=== PATIENT | male | born 1925 | race Two or more races ===

== ENCOUNTER 2016-10-12 00:26 | Inpatient (IN) | payer MEDICARE, MEDICAID ==
[~2016-10-12] VITALS: Ht 160 cm; Wt 61.2 kg
[~2016-10-12 00:26] MED LIST: ALBU8.5H2 IH; ALLO100T PO; ASPI81TA2 PO; ATOR40TA PO; CARV25TA PO; CILO50TA PO; FLUT16SP2 NS; FLUT1DIS5 IH; HYDR1TAB PO; LEVO100T13 PO; NIFE30TA26 PO; OMEG1CAP55 PO; ROPI1TAB2 PO; TAMS-12 PO
[2016-10-12] MEDS ORDERED: ASPIRIN 325 MG TABLET ONE (00:38)
[2016-10-12 00:54] LABS: BASOPHILS % (AUTO) 0.3 % (0.0-2.0); EOSINOPHILS # (AUTO) 0.1 /CMM (0.0-0.7); HEMATOCRIT 40 % (39-51); HEMOGLOBIN 13.2 g/dL (13.5-17.5); LYMPHOCYTES # (AUTO) 0.9 /CMM (0.8-4.8); LYMPHOCYTES % (AUTO) 10.2 % (20.0-44.0); MEAN CORPUSCULAR HEMOGLOBIN 29 PG (26.0-33.0); MEAN CORPUSCULAR HGB CONC 33 g/dl (31.0-36.0); MEAN CORPUSCULAR VOLUME 88 fL (80-96); MONOCYTES # (AUTO) 0.5 /CMM (0.1-1.30); MONOCYTES % (AUTO) 6.1 % (2.0-12.0); NEUTROPHILS # (AUTO) 7.3 /CMM (1.8-8.9); NEUTROPHILS % (AUTO) 82.4 % (43.0-81.0); PLATELET COUNT (AUTO) 304 /CMM (150-450); RDW COEFFICIENT OF VARIATION 13.9 (11.5-15.0); RED BLOOD CELL COUNT(AUTO) 4.57 MIL/uL (4.5-6.0); WHITE BLOOD COUNT (AUTO) 8.8 K/uL (4.3-11.0)
[2016-10-12] MEDS ORDERED: ASPIRIN 325 MG TABLET PO ONE (01:00)
[2016-10-12] MEDS ORDERED: NITROGLYCERIN 0.4 MG/TAB BOTTLE SL ONE (01:00)
[2016-10-12] MEDS ORDERED: NITROGLYCERIN 0.4 MG/TAB BOTTLE ONE (01:03)
[2016-10-12 01:05] LABS: CALCIUM, SERUM 8.7 mg/dL (8.5-10.1); CARBON DIOXIDE 33 mmol/L (21-32); CHLORIDE 97 mmol/L (98-107); GLUCOSE 129 mg/dL (74-106); POTASSIUM 4.7 mmol/L (3.5-5.1); SODIUM SERUM 140 mmol/L (136-145); UREA NITROGEN, BLOOD 39 mg/dL (7-18)
[2016-10-12 01:12] LABS: TROPONIN I < 0.017 ng/mL (0.00-0.056)
[2016-10-12] MEDS ORDERED: CLON0.2T PO (01:22)
[2016-10-12] MEDS ORDERED: ERGO400T7 PO (01:22)
[2016-10-12] MEDS ORDERED: ZOLP5TAB7 PO (01:22)
[2016-10-12] MEDS ORDERED: OLME1TAB PO (01:22)
[2016-10-12] MEDS ORDERED: SEVE800T8 PO (01:22)
[2016-10-12] MEDS ORDERED: INSU3INS6 SUBCUT (01:24)
[2016-10-12 01:41] LABS: INR 1.05 (0.87-1.13); PROTHROMBIN TIME 11.3 SECS (9.5-12.7)
[2016-10-12 01:49] LABS: B-TYPE NATRIURETIC PEPTIDE 48214 PG/ML (0-125)
[2016-10-12 02:05] VITALS: BP 164/67
[2016-10-12] MEDS ORDERED: DEXTROSE 50%-WATER 50 ML DISP.SYRIN IV PRN (03:30)
[2016-10-12] MEDS: BLOOD SUGAR DIAGNOSTIC 1 EACH STRIP IN SCH ×4 (07:30→22:12)
[2016-10-12 08:00] VITALS: BP 186/63
[2016-10-12 08:40] LABS: THYROID STIMULATING HORMONE 2.114 uIU/mL (0.358-3.74)
[2016-10-12] MEDS: ASPIRIN 81 MG TAB.CHEW PO SCH (09:00)
[2016-10-12] MEDS: NIFEdipine XL (30MG) 30 MG TAB PO SCH (09:23)
[2016-10-12 10:00] VITALS: BP 156/63
[2016-10-12] MEDS: CLONIDINE HCL 0.1 MG TABLET PO SCH ×2 (13:00→21:55)
[2016-10-12] MEDS: SEVELAMER CARBONATE 800 MG TABLET PO SCH ×2 (13:00→17:52)
[2016-10-12 16:00] VITALS: BP 132/60
[2016-10-12 19:15] LABS: GLUCOSE,BODY FLUID 78 mg/dL; PROTEIN, BODY FLUID 3.3 G/DL
[2016-10-12 19:22] LABS: WBC, BODY FLUID 2150 /cu. mm. (0-200)
[2016-10-12 19:25] LABS: TOTAL VOLUME,BODY FLUID 510 mL
[2016-10-12 19:52] LABS: MONOCYTES,BODY FLUID 5 %; POLYNUCLEAR, BODY FLUID 1 % (0-25)
[2016-10-12 20:00] VITALS: BP 124/63
[2016-10-12] MEDS ORDERED: MAG HYDROX/AL HYDROX/SIMETH 30 ML UDC PO PRN (21:30)
[2016-10-12 22:00] VITALS: BP 124/63
[2016-10-12] MEDS ORDERED: ZOLPIDEM TARTRATE 5 MG TABLET PO PRN (22:00)
[2016-10-12] MEDS ORDERED: ATORVASTATIN 10 MG TABLET PO SCH (22:00)
[2016-10-12] MEDS ORDERED: TAMSULOSIN 0.4 MG CAP.SR.24H PO SCH (22:00)
[2016-10-12] MEDS ORDERED: INSULIN DETEMIR 100 UNIT/ML CARTRIDGE SQ SCH (22:00)
[2016-10-13] VITALS: BP 120/64
[2016-10-13 04:00] VITALS: BP 147/56
[2016-10-13] MEDS: CLONIDINE HCL 0.1 MG TABLET PO SCH ×2 (06:12→12:03)
[2016-10-13] MEDS: BLOOD SUGAR DIAGNOSTIC 1 EACH STRIP IN SCH ×2 (06:12→12:11)
[2016-10-13 06:43] VITALS: BP 143/69
[2016-10-13 08:00] VITALS: BP 140/70
[2016-10-13] MEDS: SEVELAMER CARBONATE 800 MG TABLET PO SCH ×2 (08:39→12:02)
[2016-10-13] MEDS: NIFEdipine XL (30MG) 30 MG TAB PO SCH (08:39)
[2016-10-13] MEDS: ASPIRIN 81 MG TAB.CHEW PO SCH (08:39)
[2016-10-13] MEDS ORDERED: TRIBENZOR PO SCH (09:00)
[2016-10-13 12:03] VITALS: BP 147/62
[2016-10-16] MEDS ORDERED: ERGOCALCIFEROL (VITAMIN D 2) 50,000 UNIT CAPSULE PO SCH (09:00)
== END 2016-10-13 14:30 | disposition home or self-care (01) | DRG 291 ==
LOC: ER 00:28 → TELE 01:50 → MED 10-13 09:12
PROVIDERS: ADMIT Family Medicine; ATTEND Family Medicine
PROC: 0W993ZZ Drainage of Right Pleural Cavity, Percutaneous Approach (ICD-10-PCS; principal; 2016-10-12)
PROC: 5A1D00Z (ICD-10-PCS; 2016-10-13)
DX: I13.2 Hypertensive heart and chronic kidney disease with heart failure and with stage 5 chronic kidney disease, or end stage renal disease (principal); N18.6 End stage renal disease; I50.43 Acute on chronic combined systolic (congestive) and diastolic (congestive) heart failure; J90 Pleural effusion, not elsewhere classified; J98.11 Atelectasis; K90.9 Intestinal malabsorption, unspecified; J94.8 Other specified pleural conditions; M94.0 Chondrocostal junction syndrome [Tietze]; I25.119 Atherosclerotic heart disease of native coronary artery with unspecified angina pectoris; N40.0 Benign prostatic hyperplasia without lower urinary tract symptoms; Z95.1 Presence of aortocoronary bypass graft; I25.2 Old myocardial infarction; F41.0 Panic disorder [episodic paroxysmal anxiety]; Z99.2 Dependence on renal dialysis; D64.9 Anemia, unspecified; E11.22 Type 2 diabetes mellitus with diabetic chronic kidney disease; E78.5 Hyperlipidemia, unspecified; F03.90 Unspecified dementia, unspecified severity, without behavioral disturbance, psychotic disturbance, mood disturbance, and anxiety; H91.90 Unspecified hearing loss, unspecified ear; J44.9 Chronic obstructive pulmonary disease, unspecified; J45.909 Unspecified asthma, uncomplicated; K21.9 Gastro-esophageal reflux disease without esophagitis; M81.0 Age-related osteoporosis without current pathological fracture; I16.0 Hypertensive urgency; E83.42 Hypomagnesemia; G47.30 Sleep apnea, unspecified; H10.9 Unspecified conjunctivitis; Z86.73 Personal history of transient ischemic attack (TIA), and cerebral infarction without residual deficits; Z91.19 Patient's noncompliance with other medical treatment and regimen
CPT/HCPCS: 36415; 71010-TC; 72080-TC; 76942-TC; 80048-TC; 80061-TC; 82962-TC; 83880; 84439-TC; 84443-TC; 84484-TC; 85025-TC; 85730-TC; 87070-TC; 87075-TC; 87081-TC; 87102-TC; 89051-TC; 90935-TC; 93307-TC; 93970-TC; A4606; J1815; Z7610

== ENCOUNTER 2017-01-21 01:32 | Inpatient (IN) | payer MEDICARE, MEDICAID ==
[~2017-01-21] VITALS: Ht 160 cm; Wt 57.2 kg
[2017-01-21] VITALS (17 sets, daily range): BP systolic 95–152; BP diastolic 43–83
[~2017-01-21 01:32] MED LIST changes: -ALBU8.5H2 IH; -ALLO100T PO; -ATOR40TA PO; -CARV25TA PO; -CILO50TA PO; +CLON0.2T PO; +ERGO400T7 PO; -FLUT16SP2 NS; -FLUT1DIS5 IH; -HYDR1TAB PO; +INSU3INS6 SUBCUT; -LEVO100T13 PO; +OLME1TAB PO; -OMEG1CAP55 PO; -ROPI1TAB2 PO; +SEVE800T8 PO; +ZOLP5TAB7 PO
[2017-01-21] MEDS ORDERED: ASPIRIN 325 MG TABLET ONE (01:39)
--- NOTE | 2017-01-21 01:40 | NUR ---
TO BED 5 A 89 YO MALE BB FAMILY FOR CHEST PAIN/PRESSURE AND SOB. PATIENT IS AAOX3, WITH LABORED BREATHING, TACHYPNEIC AT 28, O2 SATURATION ON ROOM AIR IS 83%, SINUS TACHY ON THE MONITOR AT 110, KEPT HOBL ELEVATED. PROVIDED WITH O2 INH VIA O2 CANNULA AT 4LPM, SATTING NOW AT 92%. ENCOURAGED PROPER BREATHING TECHNIQUES. DR PATINO AT BEDSIDE FOR EVAL.
[2017-01-21] MEDS ORDERED: NITROGLYCERIN 0.4 MG/TAB BOTTLE ONE (01:44)
--- NOTE | 2017-01-21 01:45 | NUR ---
STARTED A SALINE LOCK ON THE RIGHT FOREARM G18.
[2017-01-21] MEDS ORDERED: ALBUTEROL FS 2.5 MG/0.5 ML VIAL.NEB ONE (01:47)
[2017-01-21] MEDS ORDERED: IPRATROPIUM NEB FS 0.5 MG/2.5 ML AMPUL.NEB ONE (01:47)
--- NOTE | 2017-01-21 01:53 | NUR ---
EKG DONE BY TECH.
[2017-01-21] MEDS ORDERED: IPRATROPIUM NEB FS 0.5 MG/2.5 ML AMPUL.NEB NEB ONE (02:00)
[2017-01-21] MEDS ORDERED: NITROGLYCERIN 0.4 MG/TAB BOTTLE SL ONE (02:00)
[2017-01-21] MEDS ORDERED: ASPIRIN 325 MG TABLET PO ONE (02:00)
[2017-01-21] MEDS ORDERED: ALBUTEROL FS 2.5 MG/0.5 ML VIAL.NEB NEB ONE (02:00)
[2017-01-21 02:03] LABS: BASOPHILS # (AUTO) 0.1 /CMM (0.0-0.2); BASOPHILS % (AUTO) 0.4 % (0.0-2.0); EOSINOPHILS # (AUTO) 0.2 /CMM (0.0-0.7); EOSINOPHILS % (AUTO) 1.1 % (0.0-6.0); HEMATOCRIT 37 % (39-51); HEMOGLOBIN 12.1 g/dL (13.5-17.5); LYMPHOCYTES # (AUTO) 2.8 /CMM (0.8-4.8); LYMPHOCYTES % (AUTO) 19.2 % (20.0-44.0); MEAN CORPUSCULAR HEMOGLOBIN 30 PG (26.0-33.0); MEAN CORPUSCULAR HGB CONC 33 g/dl (31.0-36.0); MEAN CORPUSCULAR VOLUME 91 fL (80-96); MONOCYTES # (AUTO) 0.7 /CMM (0.1-1.30); MONOCYTES % (AUTO) 4.6 % (2.0-12.0); NEUTROPHILS # (AUTO) 10.8 /CMM (1.8-8.9); NEUTROPHILS % (AUTO) 74.7 % (43.0-81.0); PLATELET COUNT (AUTO) 326 /CMM (150-450); RDW COEFFICIENT OF VARIATION 14.2 (11.5-15.0); RED BLOOD CELL COUNT(AUTO) 4.07 MIL/uL (4.5-6.0); WHITE BLOOD COUNT (AUTO) 14.5 K/uL (4.3-11.0)
[2017-01-21] MEDS ORDERED: ONDANSETRON HCL/PF 4 MG/2 ML VIAL ONE (02:09)
[2017-01-21] MEDS ORDERED: ALLO100T PO (02:10)
[2017-01-21] MEDS ORDERED: CARV6.252 PO (02:10)
[2017-01-21] MEDS ORDERED: ATOR40TA PO (02:10)
[2017-01-21] MEDS ORDERED: LOSA50TA21 PO (02:10)
[2017-01-21] MEDS ORDERED: NIFE60TA69 PO (02:10)
[2017-01-21] MEDS ORDERED: ISOS10TA2 PO (02:10)
[2017-01-21 02:17] LABS: CALCIUM, SERUM 7.9 mg/dL (8.5-10.1); CARBON DIOXIDE 21 mmol/L (21-32); CHLORIDE 102 mmol/L (98-107); GLUCOSE 148 mg/dL (74-106); POTASSIUM 5.4 mmol/L (3.5-5.1); SODIUM SERUM 140 mmol/L (136-145)
[2017-01-21 02:19] LABS: INR 1.08 (0.87-1.13); PROTHROMBIN TIME 11.6 SECS (9.5-12.7)
[2017-01-21 02:20] LABS: TROPONIN I 0.171 ng/mL (0.00-0.056)
--- NOTE | 2017-01-21 02:21 | NUR ---
DRYWALL TAPER HELPER AT BEDSIDE FOR CXR
[2017-01-21 02:22] LABS: CREATININE 8.4 mg/dL (0.6-1.3); UREA NITROGEN, BLOOD 83 mg/dL (7-18)
--- NOTE | 2017-01-21 02:26 | NUR ---
second ekg done, aflutter at 130's at this time. Dr Higgins notified with new orders.
[2017-01-21] MEDS ORDERED: DILTIAZEM HCL 25 MG IV ONE (02:27)
[2017-01-21] MEDS ORDERED: ONDANSETRON HCL/PF 4 MG/2 ML VIAL IV ONE (02:30)
[2017-01-21] MEDS ORDERED: DILTIAZEM HCL 50 MG IV IV ONE (02:30)
[2017-01-21 02:36] LABS: ALANINE AMINOTRANSFERASE 28 U/L (12-78); ALKALINE PHOSPHATASE 356 U/L (46-116); ASPARTATE AMINOTRANSFERASE 34 U/L (15-37); BILIRUBIN,DIRECT 0.1 mg/dL (0.0-0.2); BILIRUBIN,TOTAL 0.5 mg/dL (0.2-1.0); TOTAL PROTEIN, SERUM 8.3 g/dL (6.4-8.2)
--- NOTE | 2017-01-21 02:38 | NUR ---
MEDICATED PATIENT WITH CARDIZEM 10MG IVP ORDERED BY DR PATINO FOR UNCONTROLLED A FLUTTER AT 130'S, BP IS 120/68. ONGOING CARDIAC MONITORING.
--- NOTE | 2017-01-21 02:51 | NUR ---
DR. MACRINA WATKINS
--- NOTE | 2017-01-21 02:52 | NUR ---
THIRD EKG DONE AT THIS TIME, RECORDED SINUS RHYTHM AT 93BPM, DR PATINO NOTIFIED WITH STRIPS.
--- NOTE | 2017-01-21 02:53 | NUR ---
RECEIVED CELL NUMBER FROM DR. SCHRADER'S EXCHANGE AND WAS INSTRUCTED TO ATTEMPT TO CONTACT DR. SCHRADER DIRECTLY.
--- NOTE | 2017-01-21 02:56 | NUR ---
LEFT MESSAGE ON DR. SCHRADER'S PERSONAL CELL PHONE.
[2017-01-21 03:04] LABS: B-TYPE NATRIURETIC PEPTIDE 129296 PG/ML (0-125)
--- NOTE | 2017-01-21 03:09 | NUR ---
REPORT GIVEN TO NICOLE CHENEY FOR TELE ADMISSION.
--- NOTE | 2017-01-21 04:17 | NUR ---
NO RESPONSE FROM DR. SCHRADER AFTER SEVERAL MESSAGES LEFT ON HIS VOICE MAIL. PANEL PAGED PER DR. PATINO'S REQUEST
--- NOTE | 2017-01-21 04:35 | NUR ---
PATIENT IS SLEEPING COMFORTABLY AT THIS TIME. VSS.
--- NOTE | 2017-01-21 04:46 | NUR ---
DR PATINO ON THE PHONE WITH CIRO RODRIGUES.
--- NOTE | 2017-01-21 04:56 | NUR ---
TRANSPORTED TO TELE ROOM 321-1 VIA ALS PROTOCOL, NO INCIDENT NOTED. VSS.
--- NOTE | 2017-01-21 05:15 | NUR ---
ADMISSION NOTES Admitted pt from ER for SOB/CP. Denies pain/SOB @ this time. O2 4L N/C. Coarse rhonchi present. AAO x3. Greek-speaking. @ bedside. NSR 90's on tele. Spoke with Dr. Higgins. LEAD INGOT MOLDER Lorrie will enter admitting orders. Pt stable @ this time. NAD.
--- NOTE | 2017-01-21 06:41 | NUR ---
Pt remains stable. Resting in bed. F/U with Lorrie, HAT FORMING MACHINE FEEDER, re: admitting orders. Awaiting response.
[2017-01-21] MEDS ORDERED: MAGNESIUM HYDROXIDE 30 ML UDC PO PRN (07:00)
[2017-01-21] MEDS ORDERED: HYDROCODONE/APAP 5/325MG 1 EACH TABLET PO PRN (07:00)
[2017-01-21] MEDS ORDERED: ONDANSETRON HCL/PF 4 MG/2 ML VIAL IVP PRN (07:00)
[2017-01-21] MEDS ORDERED: Z GUARD REMEDY 2 OZ OINT TP PRN (07:00)
[2017-01-21] MEDS ORDERED: ACETAMINOPHEN 325 MG TABLET PO PRN (07:00)
[2017-01-21] MEDS ORDERED: MAG HYDROX/AL HYDROX/SIMETH 30 ML UDC PO PRN (07:00)
--- NOTE | 2017-01-21 07:35 | NUR ---
GOLF COURSE KEEPER OPENING NOTES RECEIVED PATIENT AWAKE IN BED, HEAD OF BED ELEVATED. ALERT AND ORIENTED X 3.PATIENT ON TELE MONITOR SINUS RHYTHM HEART RATE OF 82. PATIENT ON 4LPM VIA NC. PATIENT ABLE TO MAKE NEEDS KNOWN. CALL LIGHT WITHIN PATIENT'S REACH. WILL CONTINUE TO MONITOR ACCORDINGLY.
[2017-01-21] MEDS ORDERED: ISOSORBIDE DINITRATE (10MG) 10 MG TABLET PO SCH (09:00)
--- NOTE | 2017-01-21 09:10 | NUR ---
RN NOTES I WENT TO PATIENT'S ROOM AND HE TOLD ME THAT HE WAS HAVING SOB, NO CHEST PAIN. NON REBREATHING MASK 15LPM WAS APPLY DUE TO O2 SAT 74%. BP 137/59 HR 92 RR 20 T-97.7. O2 SAT IMPROVED AFTER NON-REBREATHING MASK APPLY. O2 SAT WENT FROM 74% 4LPM VIA NC TO 92% 15LPM PHIL NON-REBREATHING MASK.
--- NOTE | 2017-01-21 09:20 | NUR ---
AM BLOOD SUGAR CHECK DONE, NOTED WITH BS 172 MG/DL, PT HAD SOME JUICE AND BREAKFAST.
--- NOTE | 2017-01-21 09:22 | NUR ---
PT REFUSED INSULIN COVERAGE AT THIS TIME, RISKS AND BENEFITS OF REFUSAL DISCUSSED WITH PT.
[2017-01-21] MEDS ORDERED: NTG 50 MG/D5W250 ML BOTTL 250 ML IV PRN ×3 (09:30→11:30)
--- NOTE | 2017-01-21 09:40 | NUR ---
I CALLED DR. OLIVEROS TO INFORMED HIM THAT PATIENT WILL BE TRANSFER TO ICU.
[2017-01-21] MEDS: PANTOPRAZOLE 40 MG TABLET.DR PO SCH (09:42)
[2017-01-21] MEDS: ALLOPURINOL 100 MG TABLET PO SCH (09:42)
[2017-01-21] MEDS: CARVEDILOL 6.25 MG TABLET PO SCH ×2 (09:43→21:00)
[2017-01-21] MEDS: LOSARTAN POTASSIUM 50 MG TABLET PO SCH (09:43)
--- NOTE | 2017-01-21 09:43 | NUR ---
RN NOTES INFORMED DR. FRANCOIS ABOUT CRITICAL LAB. TROPONIN 3.088
[2017-01-21] MEDS: NIFEdipine XL 60 MG TAB PO SCH (09:44)
[2017-01-21] MEDS: ASPIRIN 81 MG TAB.CHEW PO SCH (09:44)
--- NOTE | 2017-01-21 09:50 | NUR ---
RN NOTES DR. OLIVEROS SAID TO HOLD AM MEDS.
[2017-01-21] MEDS ORDERED: AMIODARONE 150 MG in IV D5W 100 ML IV ONE (10:30)
--- NOTE | 2017-01-21 10:30 | NUR ---
PT FAMILY AT BEDSIDE, UPDATED WITH PT'S CONDITION AND TRANSFER TO ICU.
--- NOTE | 2017-01-21 10:50 | NUR ---
PT BELONGINGS TAKEN BY FAMILY ( AND DAUGHTER) AND CELL PHONE WELL
[2017-01-21] MEDS ORDERED: IV SET PRIMARY PUMP SET 1 EA INFUS.SET MC ONE ×3 (10:56→13:15)
[2017-01-21] MEDS ORDERED: ALBUTEROL FS 2.5 MG/0.5 ML VIAL.NEB NEB PRN (11:00)
[2017-01-21] MEDS ORDERED: IPRATROPIUM NEB FS 0.5 MG/2.5 ML AMPUL.NEB NEB PRN (11:00)
[2017-01-21] MEDS ORDERED: ERGOCALCIFEROL (VITAMIN D 2) 50,000 UNIT CAPSULE PO SCH (11:00)
--- NOTE | 2017-01-21 11:00 | NUR ---
PT TRANSFERRED OT ICU IN STABLE CONDITION, WITH ENGINE BUILDUP MECHANIC AND NRB MASK WITH O2 15 L/MIN, O2SAT 94% PLACED IN ROOM 262, REPORT GIVEN TO SYBIL CHENEY.
--- NOTE | 2017-01-21 11:00 | NUR ---
RN INITIAL NOTES PT RECEIVED FROM W VIA BED. REPORT RECEIVED FROM HOMAR CHENEY. PT AWAKE, A/OX3. GEORGIAN SPEAKING. ON NON-REBREATHER AT 15LPM. HOB ELEVATED. NO SIGNS OF PAIN NOTED. IV LINES IN PLACE. NOTED WILFREDO AV SHUNT, BRUIT AND THRILL PRESENT. PLACED COMFORTABLY INSIDE THE ROOM. ORIENTED TO ROOM AND USE OF CALL LIGHT, VANUSH RT DINING CHAIR SEAT CUSHION TRIMMER. SEEN AND EXAMINED BY DR. FRANCOIS AND DR. BOOTHE AT BEDSIDE. PT PLACED ON BIPAP, WILL MONITOR. WILL START AMIO BOLUS, HEPARIN DRIP AND HEMODIALYSIS. WILL CLOSELY MONITOR.
[2017-01-21] MEDS: HEPARIN INFUSION/D5W 500 ML IV PRN (11:22)
[2017-01-21] MEDS: BLOOD SUGAR DIAGNOSTIC 1 EACH STRIP IN SCH ×3 (11:39→22:07)
[2017-01-21] MEDS: INSULIN REGULAR, HUMAN 100 UNIT/ML 3 ML VIAL SQ PRN ×2 (11:41→17:33)
[2017-01-21] MEDS ORDERED: HEPARIN SODIUM, PORCINE 5000 UNITS/1 ML VIAL SQ ONE (12:00)
[2017-01-21] MEDS ORDERED: VANCOMYCIN 1 GM in IV D5W 250 ML IV ONE ×2 (12:00→16:00)
[2017-01-21] MEDS ORDERED: FEE PK DOSING 1 MIN EA MC ONE (12:05)
[2017-01-21] MEDS ORDERED: SECONDARY IV SET 1 EA INFUS.SET MC ONE ×2 (13:14→14:11)
--- NOTE | 2017-01-21 14:10 | NUR ---
RN NOTES DIALYSIS DONE. REMOVED 3500ML. NO RESPIRATORY DISTRESS NOTED. NO SOB NOTED. NO SIGNS OF PAIN NOTED. TOLERATED HD WELL. WILL CONTINUE TO MONITOR.
[2017-01-21] MEDS ORDERED: IV NS 0.9% 250 ML IV ONE (14:11)
[2017-01-21] MEDS: PIPERACILLIN /TAZOBACTAM 2.25 G in IV D5W 50 ML IV SCH ×2 (14:16→21:33)
[2017-01-21] MEDS: SEVELAMER CARBONATE 800 MG TABLET PO SCH ×2 (14:16→17:28)
[2017-01-21] MEDS: CLONIDINE HCL 0.1 MG TABLET PO SCH ×2 (14:30→17:29)
--- NOTE | 2017-01-21 15:00 | NUR ---
RN NOTES PT PLACED ON AT 3LPM VIA NC. HOB ELEVATED. ABG AT 1530. WILL CLOSELY MONITOR.
--- NOTE | 2017-01-21 15:02 | NUR ---
RN NOTES CRITICAL TROPONIN LEVEL- 10.[address] FRANCOIS. DIALYSIS DONE, REMOVED 3500ML. BIPAP REMOVED. PLACED ON 02 AT 3LPM VIA NC. HOB ELEVATED. NO RESPIRATORY DISTRESS NOTED. NO SOB NOTED. DENIES ANY PAIN. PT REMAINS A/OX3. PT IS ON HEPARIN DRIP. WILL GIVE COREG ORDERED. WILL CONTINUE TO MONITOR.
[2017-01-21] MEDS ORDERED: CARVEDILOL 6.25 MG TABLET PO SCH (15:30)
[2017-01-21] MEDS ORDERED: CARVEDILOL 6.25 MG TABLET PO ONE (15:30)
[2017-01-21 15:37] LABS: ABG BASE EXCESS 2.5 mmol/L; ABG OXYGEN SATURATION 89.5 % (92.0-98.5); ABG PCO2 35.3 mmHg (35.0-45.0); ABG PH 7.482 (7.350-7.450); ABG PO2 56.6 mmHg (75.0-100.0); AaDO2 130.3 mmHg; MetHb 0.7 % (0.0-1.5); SITE, ABG Right Radial; VENT MODE, BG N/C
[2017-01-21] MEDS: ATORVASTATIN 40 MG TABLET PO SCH (17:29)
--- NOTE | 2017-01-21 18:30 | NUR ---
RN CLOSING NOTES PT REMAINS A/OX3, NEPALESE SPEAKING. NO RESPIRATORY DISTRESS NOTED. NO SOB NOTED. DENIES ANY PAIN. HOB ELEVATED. ON 02 AT 6LPM VIA NC. IV LINES IN PLACE. ON HEPARIN DRIP, APTT LEVEL MONITORED. PT CLEAN AND DRY. ASSISTED ON REPOSITIONING. KEPT COMFORTABLE. CALL LIGHT WITHIN REACH. BLE ELEVATED. WILL ENDORSE FOR CONTINUITY OF CARE.
--- NOTE | 2017-01-21 19:20 | NUR ---
RN INITIAL NOTE; PT ON THE BED WITHOUT ANY DISTRESS. A/O X 4, ABLE TO FOLLOW COMMAND .WITH WILFREDO AV SHUNT THRILL AND BRUIT PRESENT . RFA 18G AND RH 20 G PERIPHERAL IV INTACT AND PATENT . PT ON HEPARIN DRIP. DENIED NAY PAIN AT THIS TIME .SAFETY MEASURES APPLIED CALL LIGHT WITHIN REACH . WILL CONTINUE TO MONITOR
--- NOTE | 2017-01-21 19:35 | NUR ---
RN NOTE; PTT RESULT > 170 , HELD HEPARIN DRIP FOR 60 MINS AT THIS TIME , WILL RESUME THE DOSE DECREASING BY 200 UNITS ORDERED .
--- NOTE | 2017-01-21 20:35 | NUR ---
RESUMED HEPARIN DRIP AT THE RATE OF 685 UNITS/HR . WILL CONTINUE TO MONITOR .
[2017-01-21] MEDS: TAMSULOSIN 0.4 MG CAP.SR.24H PO SCH (21:48)
[2017-01-21] MEDS: INSULIN DETEMIR 100 UNIT/ML CARTRIDGE SQ SCH (22:00)
--- NOTE | 2017-01-21 22:09 | NUR ---
RN NOTE; HELD LEVEMIR LEVEMIR 20 UNIT HELD AT THIS TIME DUE TO LOW BLOOD SUGAR 61 MG/DL . OFFERED ORANGE JUICE AND SNACK . PT IS A/O AND AWAKE ON BED . NO ANY HYPOGLYCEMIA SYMPTOMS AT THIS TIME . WILL CONTINUE TO MONITOR .
[2017-01-22] VITALS (27 sets, daily range): BP systolic 106–138; BP diastolic 42–66
--- NOTE | 2017-01-22 03:36 | NUR ---
PTT RESULT 57 . NO CHANGE IN HEPARIN DRIP RATE PER PROTOCOL . WILL CONTINUE TO MONITOR .
[2017-01-22] MEDS ORDERED: IV NS 0.9% 250 ML IV ONE (05:02)
[2017-01-22] MEDS: PIPERACILLIN /TAZOBACTAM 2.25 G in IV D5W 50 ML IV SCH ×3 (05:12→20:15)
[2017-01-22 05:23] LABS: BASOPHILS # (AUTO) 0.1 /CMM (0.0-0.2); BASOPHILS % (AUTO) 0.6 % (0.0-2.0); EOSINOPHILS # (AUTO) 0.1 /CMM (0.0-0.7); EOSINOPHILS % (AUTO) 0.8 % (0.0-6.0); HEMATOCRIT 30 % (39-51); LYMPHOCYTES % (AUTO) 9.1 % (20.0-44.0); MEAN CORPUSCULAR HEMOGLOBIN 31 PG (26.0-33.0); MEAN CORPUSCULAR HGB CONC 34 g/dl (31.0-36.0); MEAN CORPUSCULAR VOLUME 91 fL (80-96); MONOCYTES # (AUTO) 0.8 /CMM (0.1-1.30); MONOCYTES % (AUTO) 7.3 % (2.0-12.0); NEUTROPHILS # (AUTO) 8.7 /CMM (1.8-8.9); NEUTROPHILS % (AUTO) 82.2 % (43.0-81.0); PLATELET COUNT (AUTO) 280 /CMM (150-450); RDW COEFFICIENT OF VARIATION 14.2 (11.5-15.0); RED BLOOD CELL COUNT(AUTO) 3.27 MIL/uL (4.5-6.0); WHITE BLOOD COUNT (AUTO) 10.5 K/uL (4.3-11.0)
[2017-01-22 05:38] LABS: ALBUMIN 2.1 g/dL (3.4-5.0); BILIRUBIN,TOTAL 0.5 mg/dL (0.2-1.0); CALCIUM, SERUM 7.4 mg/dL (8.5-10.1); CREATININE 6.4 mg/dL (0.6-1.3); MAGNESIUM 2.2 mg/dL (1.8-2.4); POTASSIUM 5.7 mmol/L (3.5-5.1); TOTAL PROTEIN, SERUM 6.5 g/dL (6.4-8.2)
[2017-01-22 05:54] LABS: PHOSPHORUS 8.3 mg/dL (2.5-4.9)
[2017-01-22 05:56] LABS: TROPONIN I 8.614 ng/mL (0.00-0.056)
[2017-01-22] MEDS: BLOOD SUGAR DIAGNOSTIC 1 EACH STRIP IN SCH ×4 (06:35→21:31)
--- NOTE | 2017-01-22 07:14 | NUR ---
RN EOS NOTE; PT REMAINED STABLE DURING THE SHIFT, NO ANY DISTRESS NOTED. ON HEPARIN DRIP @ 685 UNIT/HR . SAFETY MEASURES APPLIED. BS AND V/S WNL . ENDORSED TO NEXT SHIFT RN FOR CONTINUITY OF CARE.
--- NOTE | 2017-01-22 08:00 | NUR ---
TACTICAL DEBRIEFER OFFICER NOTE: RECEIVED PATIENT ALERT AND ORIENTED 3, PERSIAN SPEAKING. SR ON TELE MONITOR WITH PAC'S HR 61. ON NC 3L, SPO2 WNL PATIENT NOTED TO BE ANURIC WITH INTACT SKIN, ABLE TO ASSIST WITH TURNING AND REPOSITIONING NOTED WITH [id number], RFA 18G AND WILFREDO AV SHUNT. NOTED ON HEPARIN DRIP AT 685U/HR WITH LAST PTT 57, NEXT PTT DUE 01/23 0400. PATIENT ON LOW AIR LOSS MATTRESS KEPT CLEAN AND DRY, ALL NEEDS MET. SAFETY MAINTAINED, CALL LIGHT PLACED WITHIN REACH. ONGOING MONITORING
--- NOTE | 2017-01-22 08:30 | NUR ---
BUTCHER HELPER NOTE: DR. OLIVEROS AT BEDSIDE MADE AWARE THAT PHOS IS 8.3 H. TROPONIN IS 8.614 TRENDING DOWN AND PROCALCITONIN IS 6.32H. AND K 5.7. DR. FRANCOIS SUGGESTS HD, DISCUSSED WITH DR. OLIVEROS THAT PATIENT IS ON HEPARIN DRIP, ON PHOSLO AND ANTIBIOTICS AND WILL DEFER HD ORDER TO DR HALL.
[2017-01-22] MEDS: ASPIRIN 81 MG TAB.CHEW PO SCH (08:33)
[2017-01-22] MEDS: CARVEDILOL 6.25 MG TABLET PO SCH ×2 (08:34→20:16)
[2017-01-22] MEDS: SEVELAMER CARBONATE 800 MG TABLET PO SCH (08:39)
[2017-01-22] MEDS: ALLOPURINOL 100 MG TABLET PO SCH (08:39)
[2017-01-22] MEDS: LOSARTAN POTASSIUM 50 MG TABLET PO SCH (08:40)
[2017-01-22] MEDS: CLONIDINE HCL 0.1 MG TABLET PO SCH ×5 (08:40→17:37)
[2017-01-22] MEDS: PANTOPRAZOLE 40 MG TABLET.DR PO SCH (08:40)
[2017-01-22] MEDS: NIFEdipine XL 60 MG TAB PO SCH (08:41)
[2017-01-22] MEDS ORDERED: ERGOCALCIFEROL (VITAMIN D 2) 50,000 UNIT CAPSULE PO SCH (09:00)
--- NOTE | 2017-01-22 12:15 | NUR ---
SOAKER HIDES NOTE: HD NURSE AT BEDSIDE, HD STARTED BP MAINTAINED, VS STABLE. NO DISTRESS NOTED. ONGOING MONITORING
--- NOTE | 2017-01-22 12:30 | NUR ---
TYPE MAPPER NOTE: PATIENT AT BEDSIDE STATES THAT PATIENT IS NOT LONGER ON RENVELA HOWEVER PHOSLO AT 667MG. CALL MADE TO DR. OLIVEROS AND ORDER CHANGED FROM RENVELA TO PHOSLO, ONGOING MONITORING.
[2017-01-22] MEDS: CALCIUM ACETATE 667 MG TABLET PO SCH ×2 (13:07→17:38)
--- NOTE | 2017-01-22 14:30 | NUR ---
MANAGER OF GLOBAL NOTE: HD COMPLETE, VS STABLE. BP MAINTAINED. PATIENT TOLERATED PROCEDURE WELL. 1800ML OUT. ONGOING CLOSE MONITORING
[2017-01-22] MEDS: ATORVASTATIN 40 MG TABLET PO SCH (17:38)
[2017-01-22] MEDS: VANCOMYCIN 500 MG in IV D5W 100 ML IV PRN (17:39)
[2017-01-22] MEDS: HEPARIN INFUSION/D5W 500 ML IV PRN (17:41)
--- NOTE | 2017-01-22 18:37 | NUR ---
HEAVY EQUIPMENT OPERATING ENGINEER NOTE: PATIENT RESTING COMFORTABLY IN BED WITH AT BEDSIDE. POST HD VANCO ADMINISTERED NOTED ON HEPARIN DRIP AT 685U/HR WITH LAST PTT 57, NEXT PTT DUE 01/23 0400. PATIENT KEPT CLEAN AND DRY, ALL NEEDS MET. SAFETY MAINTAINED, CALL LIGHT PLACED WITHIN REACH. ONGOING MONITORING
--- NOTE | 2017-01-22 20:00 | NUR ---
COLOR WORKER - NOTES - RECEIVED PATIENT ALERT AND ORIENTED 3, SENEGALESE/TURKISH SPEAKING. SR ON TELE MONITOR WITH PAC'S HR 61. ON NC 3L, SPO2 WNL PATIENT NOTED TO BE ANURIC WITH INTACT SKIN, ABLE TO ASSIST WITH TURNING AND REPOSITIONING NOTED WITH R HAND 20G, R FA 18G AND WILFREDO AV SHUNT. NOTED ON HEPARIN DRIP AT 685U/HR WITH LAST PTT 57, NEXT PTT DUE 01/23 0400. PATIENT ON LOW AIR LOSS MATTRESS KEPT CLEAN AND DRY, ALL NEEDS MET. SAFETY MAINTAINED, CALL LIGHT PLACED WITHIN REACH. ONGOING MONITORING
[2017-01-22] MEDS: TAMSULOSIN 0.4 MG CAP.SR.24H PO SCH (21:32)
[2017-01-22] MEDS: INSULIN DETEMIR 100 UNIT/ML CARTRIDGE SQ SCH (21:32)
[2017-01-23] VITALS (24 sets, daily range): BP systolic 105–133; BP diastolic 34–59
[2017-01-23 05:11] LABS: BASOPHILS % (AUTO) 0.5 % (0.0-2.0); EOSINOPHILS # (AUTO) 0.1 /CMM (0.0-0.7); HEMATOCRIT 32 % (39-51); HEMOGLOBIN 10.5 g/dL (13.5-17.5); LYMPHOCYTES # (AUTO) 1.1 /CMM (0.8-4.8); MEAN CORPUSCULAR HEMOGLOBIN 30 PG (26.0-33.0); MEAN CORPUSCULAR HGB CONC 33 g/dl (31.0-36.0); MEAN CORPUSCULAR VOLUME 92 fL (80-96); MONOCYTES # (AUTO) 0.8 /CMM (0.1-1.30); MONOCYTES % (AUTO) 9.7 % (2.0-12.0); NEUTROPHILS # (AUTO) 6.3 /CMM (1.8-8.9); NEUTROPHILS % (AUTO) 75.8 % (43.0-81.0); PLATELET COUNT (AUTO) 253 /CMM (150-450); RDW COEFFICIENT OF VARIATION 14.1 (11.5-15.0); RED BLOOD CELL COUNT(AUTO) 3.44 MIL/uL (4.5-6.0); WHITE BLOOD COUNT (AUTO) 8.3 K/uL (4.3-11.0)
[2017-01-23] MEDS ORDERED: IV NS 0.9% 250 ML IV ONE (05:21)
[2017-01-23] MEDS: PIPERACILLIN /TAZOBACTAM 2.25 G in IV D5W 50 ML IV SCH ×3 (05:23→20:37)
[2017-01-23 05:28] LABS: CALCIUM, SERUM 7.6 mg/dL (8.5-10.1); CREATININE 5.8 mg/dL (0.6-1.3); PHOSPHORUS 6.1 mg/dL (2.5-4.9); POTASSIUM 5.3 mmol/L (3.5-5.1)
[2017-01-23 05:39] LABS: TROPONIN I 5.159 ng/mL (0.00-0.056)
--- NOTE | 2017-01-23 06:15 | NUR ---
PTT 89, HEPARIN DRIP HELD FOR 30 MINUTES AND RESTARTED AT 100 UNITS/HR LESS 585 UNITS/HR PER PROTOCOL AND TROPONIN WAS 5.129 TRENDING DOWN FROM 8.6
[2017-01-23] MEDS: BLOOD SUGAR DIAGNOSTIC 1 EACH STRIP IN SCH ×4 (07:52→21:58)
[2017-01-23] MEDS: CALCIUM ACETATE 667 MG TABLET PO SCH ×3 (07:52→17:16)
[2017-01-23] MEDS: PANTOPRAZOLE 40 MG TABLET.DR PO SCH (07:52)
[2017-01-23] MEDS: ASPIRIN 81 MG TAB.CHEW PO SCH (08:01)
[2017-01-23] MEDS: CARVEDILOL 6.25 MG TABLET PO SCH ×2 (08:02→20:38)
[2017-01-23] MEDS: CLONIDINE HCL 0.1 MG TABLET PO SCH ×3 (08:02→17:16)
[2017-01-23] MEDS: LOSARTAN POTASSIUM 50 MG TABLET PO SCH (08:02)
[2017-01-23] MEDS: ALLOPURINOL 100 MG TABLET PO SCH (08:02)
[2017-01-23] MEDS ORDERED: HEPARIN SODIUM, PORCINE 5000 UNITS/1 ML VIAL SQ SCH (09:00)
[2017-01-23] MEDS: NIFEdipine XL (30MG) 30 MG TAB PO SCH (10:07)
--- NOTE | 2017-01-23 11:09 | NUR ---
CARPET INSTALLER NOTE 0720: Received patient awake, A/Ox3, Indonesian/Cook Islander speaking, understands little Amharic. With 3LPM O2 via NC tolerated well. No c/o any discomfort at this time. WILFREDO AV fistula + bruit/thrill. NSR 60 on the monitor. On Heparin drip infusing as ordered. Noted with crackles during auscultation. 0830: S/E by Dr. lopez, with order to DC Heparin, Trop trended down, changed to SQ. 0900: S/E by Dr. Cartagena, awaiting Nephro for HD. 1045: S/E by Dr. Askew, no new order at this time. 1100: No any significant changes noted at this time. SB 50's. Patient has no c/o dizziness, headache, etc.
[2017-01-23] MEDS: DEXTROSE 50%-WATER 50 ML DISP.SYRIN IV PRN (12:06)
[2017-01-23] MEDS: HEPARIN SODIUM, PORCINE 5000 UNITS/1 ML VIAL SQ SCH ×2 (12:13→20:38)
--- NOTE | 2017-01-23 12:47 | NUR ---
GEOSPATIAL PROGRAM MANAGEMENT OFFICER NOTE 1200: Noted patient with BS 48, patient is asymptomatic, no diaphoresis, lightheadedness, shaking etc. A/Ox3, and refused D50W, said he will eat lunch and check again after 30min. OJ given. 1230: BS rechecked 94.
[2017-01-23] MEDS: ATORVASTATIN 40 MG TABLET PO SCH (17:16)
[2017-01-23] MEDS: TAMSULOSIN 0.4 MG CAP.SR.24H PO SCH (21:58)
[2017-01-23] MEDS: INSULIN DETEMIR 100 UNIT/ML CARTRIDGE SQ SCH (21:59)
[2017-01-24] VITALS (18 sets, daily range): BP systolic 96–126; BP diastolic 36–56
[2017-01-24 04:52] LABS: BASOPHILS % (AUTO) 0.5 % (0.0-2.0); EOSINOPHILS # (AUTO) 0.1 /CMM (0.0-0.7); EOSINOPHILS % (AUTO) 1.7 % (0.0-6.0); HEMATOCRIT 30 % (39-51); LYMPHOCYTES # (AUTO) 1.2 /CMM (0.8-4.8); MEAN CORPUSCULAR HEMOGLOBIN 30 PG (26.0-33.0); MEAN CORPUSCULAR HGB CONC 33 g/dl (31.0-36.0); MEAN CORPUSCULAR VOLUME 91 fL (80-96); MONOCYTES # (AUTO) 0.7 /CMM (0.1-1.30); MONOCYTES % (AUTO) 9.6 % (2.0-12.0); NEUTROPHILS # (AUTO) 5.3 /CMM (1.8-8.9); NEUTROPHILS % (AUTO) 72.2 % (43.0-81.0); PLATELET COUNT (AUTO) 236 /CMM (150-450); RED BLOOD CELL COUNT(AUTO) 3.31 MIL/uL (4.5-6.0); WHITE BLOOD COUNT (AUTO) 7.3 K/uL (4.3-11.0)
[2017-01-24 04:59] LABS: ALBUMIN 2.1 g/dL (3.4-5.0); BILIRUBIN,TOTAL 0.4 mg/dL (0.2-1.0); CALCIUM, SERUM 7.7 mg/dL (8.5-10.1); MAGNESIUM 2.1 mg/dL (1.8-2.4); PHOSPHORUS 4.7 mg/dL (2.5-4.9); POTASSIUM 4.7 mmol/L (3.5-5.1); TOTAL PROTEIN, SERUM 6.5 g/dL (6.4-8.2)
[2017-01-24 05:07] LABS: TROPONIN I 3.356 ng/mL (0.00-0.056)
[2017-01-24] MEDS: PIPERACILLIN /TAZOBACTAM 2.25 G in IV D5W 50 ML IV SCH ×3 (05:37→21:06)
[2017-01-24] MEDS: DEXTROSE 50%-WATER 50 ML DISP.SYRIN IV PRN (05:43)
--- NOTE | 2017-01-24 07:40 | NUR ---
TECHNICIAN TELECOMMUNICATION SYSTEMS NOTE PATIENT IN BED , ALL NEEDS ATTENDED ON TELE MONITOR SB HR 55 , ON 2L NC O2 .AT 99% ,PATIENT ALERT, ORIENTEDX3 , , RT HAND AND RT FA HL INTACT ,NO S\S INFECTION NOTED , WILFREDO AV FISTULA IN PLACE WITH BRUIT SOUND NOTED , BED IN ,LOWEST AND LOCKED POSITION , CALL LIGHT WITHIN REACH , PLAN OF CARE DISCUSSED WITH PATIENT, WILL CONT TO MONITOR CLOSELY , SEEN BY DR FRANCOIS NOTIFIED THAT TROPONIN 3.356 AND BLOOD SUGAR WAS 42 MG\DL
[2017-01-24] MEDS: PANTOPRAZOLE 40 MG TABLET.DR PO SCH (08:05)
[2017-01-24] MEDS: CALCIUM ACETATE 667 MG TABLET PO SCH ×3 (08:05→17:06)
[2017-01-24] MEDS: ALLOPURINOL 100 MG TABLET PO SCH (08:05)
[2017-01-24] MEDS: ASPIRIN 81 MG TAB.CHEW PO SCH (08:05)
[2017-01-24] MEDS: HEPARIN SODIUM, PORCINE 5000 UNITS/1 ML VIAL SQ SCH ×2 (08:06→21:08)
[2017-01-24] MEDS: BLOOD SUGAR DIAGNOSTIC 1 EACH STRIP IN SCH ×4 (08:15→21:04)
[2017-01-24] MEDS: CLONIDINE HCL 0.1 MG TABLET PO SCH ×3 (08:59→17:06)
[2017-01-24] MEDS: CARVEDILOL 6.25 MG TABLET PO SCH ×2 (09:00→21:00)
[2017-01-24] MEDS: NIFEdipine XL (30MG) 30 MG TAB PO SCH (09:00)
--- NOTE | 2017-01-24 09:00 | NUR ---
METAL PRECISION MACHINE ASSEMBLER NOTE SEEN BY DR LANCASTER AWARE THAT PATIENT FEELS BETTER ,ON 2L NC NO SOB
[2017-01-24] MEDS: LOSARTAN POTASSIUM 50 MG TABLET PO SCH (09:16)
--- NOTE | 2017-01-24 11:35 | NUR ---
LPN PRIVATE DUTY NOTE SEEN BY DR KONG WITH ORDER TO TRANSFER TO TELE , ORDER CARRIED OUT
[2017-01-24] MEDS: INSULIN REGULAR, HUMAN 100 UNIT/ML 3 ML VIAL SQ PRN (12:22)
--- NOTE | 2017-01-24 12:31 | NUR ---
MIGUELANGEL received a call from pt's SHRAVAN Day requesting a verification of admission letter for pt. since pt. is scheduled to travel and is unable to do so due to hospitalization. MIGUELANGEL completed verification of admission letter and gave it to SHRAVAN Day to give to pt. since pt. is Ecuadorean speaking only.
--- NOTE | 2017-01-24 14:39 | NUR ---
MIGUELANGEL received a call from pt's travel accommodation inspector Tess requesting to email her the verification of admission letter. MIGUELANGEL sent the letter via email to [email or web address]
--- NOTE | 2017-01-24 16:15 | NUR ---
agriculture professor note transferred to tele unit by bed with acls protocol by bed with stable condition .placed to room 114 bed 1
--- NOTE | 2017-01-24 16:56 | NUR ---
MAINTENANCE TRUCK DRIVER NOTE RECEIVED PATIENT FROM ICU , ALERT , ORIENTED X3 , PLACED ON TELE MONITOR SR 60 , ON 2L O2 VIA NC NO SOB NOTED ,FAMILY AT BEDSIDE, ALL NEEDS ATTENDED , CALL LIGHT WITHIN REACH UNIT ORIENTATION DONE
[2017-01-24] MEDS: ATORVASTATIN 40 MG TABLET PO SCH (17:06)
--- NOTE | 2017-01-24 17:52 | NUR ---
MICA MACHINE OPERATOR NOTE ASSISTED TO BR , ABLE TO MAKE BM ,KEEP CLEAN DRY, WILL CONT TO MONITOR CLOSELY
--- NOTE | 2017-01-24 18:13 | NUR ---
EVALUATION ANALYST NOTE HAVING DINNER , ABLE TO EAT SELF, NOT IN CUTE DISTRESS
--- NOTE | 2017-01-24 19:51 | NUR ---
TELE-1/MATERIAL CUTTER PT TRANSFERRED TO ROOM 118-2 FOR STAFFING PURPOSES. PT TOLERATED WELL. HERMES ZAVALA AT BEDSIDE FOR PT SAFETY.
[2017-01-24] MEDS: INSULIN DETEMIR 100 UNIT/ML CARTRIDGE SQ SCH (21:06)
[2017-01-24] MEDS: TAMSULOSIN 0.4 MG CAP.SR.24H PO SCH (21:07)
--- NOTE | 2017-01-24 21:12 | NUR ---
MED NOTE: PT REFUSING REG INSULIN COVERAGE ONLY WANTING LEVEMIR COVERAGE. RISKS AND BENIFITS EXPLAINED. WILL CONTINUE TO MONITOR.
[2017-01-25] VITALS: BP 125/56
[2017-01-25 04:00] VITALS: BP_SYST 118; BP_DIAS 55; BP_DIAS 61
[2017-01-25] MEDS: PIPERACILLIN /TAZOBACTAM 2.25 G in IV D5W 50 ML IV SCH ×3 (05:00→21:49)
--- NOTE | 2017-01-25 05:49 | NUR ---
MED NOTE: 0500 ZOSYN ADMINISTERED ON DOWN TIME EMAR.
[2017-01-25 07:11] LABS: BASOPHILS % (AUTO) 0.4 % (0.0-2.0); EOSINOPHILS # (AUTO) 0.2 /CMM (0.0-0.7); EOSINOPHILS % (AUTO) 2.6 % (0.0-6.0); HEMATOCRIT 29 % (39-51); HEMOGLOBIN 9.8 g/dL (13.5-17.5); LYMPHOCYTES # (AUTO) 1.2 /CMM (0.8-4.8); LYMPHOCYTES % (AUTO) 16.9 % (20.0-44.0); MEAN CORPUSCULAR HEMOGLOBIN 31 PG (26.0-33.0); MEAN CORPUSCULAR HGB CONC 34 g/dl (31.0-36.0); MEAN CORPUSCULAR VOLUME 91 fL (80-96); MONOCYTES # (AUTO) 0.6 /CMM (0.1-1.30); NEUTROPHILS # (AUTO) 5.1 /CMM (1.8-8.9); NEUTROPHILS % (AUTO) 72.1 % (43.0-81.0); PLATELET COUNT (AUTO) 221 /CMM (150-450); RDW COEFFICIENT OF VARIATION 13.6 (11.5-15.0); RED BLOOD CELL COUNT(AUTO) 3.21 MIL/uL (4.5-6.0); WHITE BLOOD COUNT (AUTO) 7.1 K/uL (4.3-11.0)
--- NOTE | 2017-01-25 07:30 | NUR ---
RN INITIAL NOTE RECEIVED REPORT FROM DAHLIA WATTS PM NURSE. PT A/O X3 NC@ 2L. IV RFA #20 WILFREDO AV SHUNT.WILL CONTINUE TO MONITOR. ALL SAFETY MEASURES IN PLACE.
[2017-01-25 07:33] LABS: CALCIUM, SERUM 7.7 mg/dL (8.5-10.1); CARBON DIOXIDE 28 mmol/L (21-32); CHLORIDE 103 mmol/L (98-107); CREATININE 6.2 mg/dL (0.6-1.3); GLUCOSE 100 mg/dL (74-106); MAGNESIUM 2.2 mg/dL (1.8-2.4); PHOSPHORUS 5.2 mg/dL (2.5-4.9); POTASSIUM 5.7 mmol/L (3.5-5.1); SODIUM SERUM 140 mmol/L (136-145); UREA NITROGEN, BLOOD 57 mg/dL (7-18); VANCOMYCIN,TROUGH 15 ug/ml (12-20)
[2017-01-25 08:00] VITALS: BP 119/50
[2017-01-25] MEDS: BLOOD SUGAR DIAGNOSTIC 1 EACH STRIP IN SCH ×4 (08:28→21:50)
[2017-01-25] MEDS: PANTOPRAZOLE 40 MG TABLET.DR PO SCH (08:29)
[2017-01-25] MEDS: ASPIRIN 81 MG TAB.CHEW PO SCH (08:29)
[2017-01-25] MEDS: ALLOPURINOL 100 MG TABLET PO SCH (08:29)
[2017-01-25] MEDS: CALCIUM ACETATE 667 MG TABLET PO SCH ×3 (08:29→17:33)
[2017-01-25] MEDS: CLONIDINE HCL 0.1 MG TABLET PO SCH ×3 (08:38→17:32)
[2017-01-25] MEDS: CARVEDILOL 6.25 MG TABLET PO SCH ×2 (08:38→21:50)
--- NOTE | 2017-01-25 08:38 | NUR ---
RN NOTE PT NOTICE TO HAVE ASPIRIN BOTTLE FROM HOME 81 MG. FOR PT SAFETY BOTTLE TAKE AND SENT TO PHARMACY. COPY OF BAG PUT IN CHART. CHARGE NURSE RUTHIE NOTIFIED.
[2017-01-25] MEDS: HEPARIN SODIUM, PORCINE 5000 UNITS/1 ML VIAL SQ SCH ×2 (08:39→21:56)
[2017-01-25] MEDS: LOSARTAN POTASSIUM 50 MG TABLET PO SCH (08:39)
[2017-01-25] MEDS: NIFEdipine XL (30MG) 30 MG TAB PO SCH (08:39)
--- NOTE | 2017-01-25 08:43 | NUR ---
RN NOTE PER HD NURSE DUSTIN WILL HOLD ALL BP MEDICATIONS WELL ASPIRIN AND HEPARIN DUE TO HAVING TO STICK PT FOR HD.
[2017-01-25] MEDS: DEXTROSE 50%-WATER 50 ML DISP.SYRIN IV PRN (11:52)
[2017-01-25 12:00] VITALS: BP_SYST 136; BP_SYST 137; BP_DIAS 52; BP_DIAS 57
[2017-01-25] MEDS ORDERED: EPOETIN ALFA (10,000 UNIT) 10,000 UNIT/ML VIAL SQ ONE (13:00)
--- NOTE | 2017-01-25 13:00 | NUR ---
RN NOTE PT B.S WAS 52 DEXTROSE GIVEN IV. RUI 30 MINUTES B.S 175. PT STABLE .
[2017-01-25] MEDS ORDERED: IV NS 0.9% 250 ML IV ONE (14:52)
[2017-01-25] MEDS ORDERED: IV SET PRIMARY PUMP SET 1 EA INFUS.SET MC ONE (14:52)
[2017-01-25] MEDS ORDERED: SECONDARY IV SET 1 EA INFUS.SET MC ONE (14:53)
[2017-01-25] MEDS: VANCOMYCIN 500 MG in IV D5W 100 ML IV PRN (15:14)
[2017-01-25 16:00] VITALS: BP_SYST 137; BP_DIAS 62; BP_DIAS 68
[2017-01-25] MEDS: ATORVASTATIN 40 MG TABLET PO SCH (17:32)
[2017-01-25] MEDS: INSULIN REGULAR, HUMAN 100 UNIT/ML 3 ML VIAL SQ PRN (17:36)
--- NOTE | 2017-01-25 19:20 | NUR ---
RN OPENING NOTES: RECEIVED PT ON BED AWAKE ALOX3 AND VERBALLY RESPONSIVE SYRIAC/ FIJIAN SPEAKER. ON O2 THERAPY, TOLERATED WELL AT 2LPM. SR WITH 1ST DEGREE AVB NOTED ON MONITOR HR AT 61 BPM. IV ACCESS ON R HAND G22 PATENT AND INTACT L AV SHUNT WITH BRUITS AND THRILLS. SAFETY MEASURES ENSURED. CALL LIGHT WITHIN REACH. CONTINUOUSLY MONITORED.
--- NOTE | 2017-01-25 19:24 | NUR ---
RN CLOSING REPORT GIVEN TO JAYNA RN PM NURSE FOR TRACEY. PT A/O X3 NC@ 2L. IV R HAND #22 PATENT AND INTACT, WILFREDO AV SHUNT. ALL SAFETY MEASURES IN PLACE. ALL MEDICATIONS GIVEN ALL ORDERS CARRIED OUT.
[2017-01-25 20:00] VITALS: BP 160/62
--- NOTE | 2017-01-25 21:30 | NUR ---
RN NOTES: NOTED BLOOD GLUCOSE AT 77. HELD LEVEMIR DOSE AT THIS TIME AND OFFERED SNACKS. CONTINUOUSLY MONITORED FOR S/SX OF HYPOGLYCEMIA.
[2017-01-25] MEDS: TAMSULOSIN 0.4 MG CAP.SR.24H PO SCH (21:50)
[2017-01-25] MEDS: INSULIN DETEMIR 100 UNIT/ML CARTRIDGE SQ SCH (21:57)
[2017-01-26] VITALS: BP 147/63
[2017-01-26 04:00] VITALS: BP 144/57
[2017-01-26] MEDS ORDERED: IV NS 0.9% 250 ML IV ONE (05:04)
[2017-01-26] MEDS: PIPERACILLIN /TAZOBACTAM 2.25 G in IV D5W 50 ML IV SCH ×2 (05:56→12:03)
[2017-01-26] MEDS: BLOOD SUGAR DIAGNOSTIC 1 EACH STRIP IN SCH ×2 (06:32→12:03)
[2017-01-26 06:49] LABS: CALCIUM, SERUM 7.9 mg/dL (8.5-10.1); CARBON DIOXIDE 31 mmol/L (21-32); CHLORIDE 98 mmol/L (98-107); CREATININE 5.8 mg/dL (0.6-1.3); GLUCOSE 148 mg/dL (74-106); POTASSIUM 5.5 mmol/L (3.5-5.1); SODIUM SERUM 137 mmol/L (136-145); UREA NITROGEN, BLOOD 54 mg/dL (7-18)
--- NOTE | 2017-01-26 07:21 | NUR ---
RN CLOSING NOTES; PATIENT REMAINED IN BED NOT IN APPARENT DISTRESS. NO COMPLAINTS OF PAIN. REMAINED SR ON MONITOR WITH 1 DEGREE AVB STILL. WITH EPISODES OF BRADYCARDIA. SAFETY MEASURES ENSURED. NO COMPLAINTS OF PAIN. ENDORSED TO AM SHIFT RN
--- NOTE | 2017-01-26 07:26 | NUR ---
RN INITIAL NOTE RECEIVED REPORT FROM JAYNA RN PM NURSE. PT A/O X3 . NC@ 2L. IV R HAND#22 WILFREDO AV SHUNT.WILL CONTINUE TO MONITOR. ALL SAFETY MEASURES IN PLACE.
[2017-01-26 08:00] VITALS: BP 142/54
[2017-01-26] MEDS: ALLOPURINOL 100 MG TABLET PO SCH (08:12)
[2017-01-26] MEDS: ASPIRIN 81 MG TAB.CHEW PO SCH (08:12)
[2017-01-26] MEDS: PANTOPRAZOLE 40 MG TABLET.DR PO SCH (08:12)
[2017-01-26] MEDS: CALCIUM ACETATE 667 MG TABLET PO SCH ×2 (08:12→12:03)
[2017-01-26] MEDS: CARVEDILOL 6.25 MG TABLET PO SCH (08:13)
[2017-01-26] MEDS: NIFEdipine XL (30MG) 30 MG TAB PO SCH (08:14)
[2017-01-26] MEDS: LOSARTAN POTASSIUM 50 MG TABLET PO SCH (08:15)
[2017-01-26] MEDS: HEPARIN SODIUM, PORCINE 5000 UNITS/1 ML VIAL SQ SCH (08:17)
[2017-01-26] MEDS: CLONIDINE HCL 0.1 MG TABLET PO SCH ×2 (08:18→12:04)
[2017-01-26] MEDS ORDERED: LEVO750T21 PO ×2 (10:48→10:55)
[2017-01-26] MEDS ORDERED: ALBUT2 CONTNEB (11:17)
--- NOTE | 2017-01-26 11:21 | NUR ---
RN NOTE B.S TAKEN 142 PT REFUSING COVERAGE OF INSULIN.
[2017-01-26 12:00] VITALS: BP_SYST 118; BP_SYST 142; BP_DIAS 54
[2017-01-26 12:04] VITALS: BP 147/68
--- NOTE | 2017-01-26 15:40 | NUR ---
DISCHARGE NOTE PT DC HOME WITH AND NEIGHBOR. BELONGING LIST SIGNED ALL INSTRUCTIONS GIVEN TO PT. PHARMACY CALLED FOR RX. PT STABLE. IV REMOVED AND ID BAND.ALL QUESTIONS ANSWERED. PHOTO TAKEN AND PUT IN CHART. PT CLEAN AND WHEELED OUT BY KYLEE ZAVALA. ALL MEDICATIONS GIVEN AND ALL ORDERS CARRIED OUT. JAVA J2EE APPLICATION DEVELOPER HOME ASP AND GAVE TO PT.
== END 2017-01-26 16:16 | disposition home or self-care (01) | DRG 871 ==
LOC: ER 01:32 → TELE 04:57 → ICU 10:53 → TELE1 01-24 16:22
PROVIDERS: ADMIT Nurse Practitioner Acute Care; ATTEND Family Medicine
PROC: 5A1D60Z (ICD-10-PCS; principal; 2017-01-21)
DX: A41.9 Sepsis, unspecified organism (principal); J96.21 Acute and chronic respiratory failure with hypoxia; J18.9 Pneumonia, unspecified organism; I50.33 Acute on chronic diastolic (congestive) heart failure; N18.6 End stage renal disease; I21.4 Non-ST elevation (NSTEMI) myocardial infarction; J44.0 Chronic obstructive pulmonary disease with (acute) lower respiratory infection; I13.2 Hypertensive heart and chronic kidney disease with heart failure and with stage 5 chronic kidney disease, or end stage renal disease; I48.92 Unspecified atrial flutter; I50.1 Left ventricular failure, unspecified; J90 Pleural effusion, not elsewhere classified; R65.20 Severe sepsis without septic shock; E11.22 Type 2 diabetes mellitus with diabetic chronic kidney disease; Z99.2 Dependence on renal dialysis; D64.9 Anemia, unspecified; E78.5 Hyperlipidemia, unspecified; E87.5 Hyperkalemia; F03.90 Unspecified dementia, unspecified severity, without behavioral disturbance, psychotic disturbance, mood disturbance, and anxiety; M10.9 Gout, unspecified; M81.0 Age-related osteoporosis without current pathological fracture; N40.0 Benign prostatic hyperplasia without lower urinary tract symptoms; Z86.73 Personal history of transient ischemic attack (TIA), and cerebral infarction without residual deficits; I27.2 Other secondary pulmonary hypertension; Z91.19 Patient's noncompliance with other medical treatment and regimen; Z95.1 Presence of aortocoronary bypass graft; F43.10 Post-traumatic stress disorder, unspecified; I25.10 Atherosclerotic heart disease of native coronary artery without angina pectoris; I25.2 Old myocardial infarction; E83.9 Disorder of mineral metabolism, unspecified
CPT/HCPCS: 36415; 36600; 71010-TC; 80048-TC; 80053-TC; 80061-TC; 80076-TC; 80202-TC; 82962-TC; 83605-TC; 83735-TC; 83880; 84100-TC; 84484-TC; 85025-TC; 85730-TC; 87040-TC; 87081-TC; 90935-TC; 93307-TC; 94799-TC; A4606; A6402; J0282; J0885; J1644; J1815; J2405; J2543; J3370; J3490; J7050; J7060; Z7610

== ENCOUNTER 2017-01-31 23:10 | Inpatient (IN) | payer MEDICARE, MEDICAID ==
[~2017-01-31] VITALS: Ht 152.4 cm; Wt 55.3 kg
[~2017-01-31 23:10] MED LIST changes: +ALBUT2 CONTNEB; +ALLO100T PO; +ATOR40TA PO; +CARV6.252 PO; +ISOS10TA2 PO; +LEVO750T21 PO; +LOSA50TA21 PO; -NIFE30TA26 PO; +NIFE60TA69 PO
--- NOTE | 2017-01-31 23:20 | NUR ---
89 YO MALE BB FAMILY FOR CHEST PAIN WITH SOB. PT IS ALERT X 3, NOTED LEFT UPPER ARM DIALYSIS ACCESS. PT GOWNED, PLACED ON CYCLE COUNTER. SKIN WARM AND DRY, RR EVEN AND UNLABORED. AWAITING ORDERS FROM PROVIDER, WILL CONITNUE TO MONITOR
[2017-01-31] MEDS ORDERED: ASPIRIN 325 MG TABLET ONE (23:22)
[2017-01-31] MEDS ORDERED: NITROGLYCERIN 0.4 MG/TAB BOTTLE ONE (23:22)
[2017-01-31] MEDS ORDERED: NITROGLYCERIN 0.4 MG/TAB BOTTLE SL ONE (23:30)
[2017-01-31] MEDS ORDERED: ASPIRIN 325 MG TABLET PO ONE (23:30)
[2017-01-31 23:42] LABS: BASOPHILS % (AUTO) 0.1 % (0.0-2.0); EOSINOPHILS # (AUTO) 0.1 /CMM (0.0-0.7); HEMATOCRIT 32 % (39-51); HEMOGLOBIN 10.8 g/dL (13.5-17.5); LYMPHOCYTES # (AUTO) 0.8 /CMM (0.8-4.8); LYMPHOCYTES % (AUTO) 8.2 % (20.0-44.0); MEAN CORPUSCULAR HEMOGLOBIN 31 PG (26.0-33.0); MEAN CORPUSCULAR HGB CONC 34 g/dl (31.0-36.0); MEAN CORPUSCULAR VOLUME 90 fL (80-96); MONOCYTES # (AUTO) 0.7 /CMM (0.1-1.30); MONOCYTES % (AUTO) 7.1 % (2.0-12.0); NEUTROPHILS # (AUTO) 8.4 /CMM (1.8-8.9); NEUTROPHILS % (AUTO) 83.6 % (43.0-81.0); PLATELET COUNT (AUTO) 345 /CMM (150-450); RDW COEFFICIENT OF VARIATION 14.1 (11.5-15.0); RED BLOOD CELL COUNT(AUTO) 3.51 MIL/uL (4.5-6.0); WHITE BLOOD COUNT (AUTO) 10.1 K/uL (4.3-11.0)
--- NOTE | 2017-01-31 23:49 | NUR ---
CALLED NURSING SUP. FOR TELE BED
[2017-01-31 23:53] LABS: CALCIUM, SERUM 8.2 mg/dL (8.5-10.1); CARBON DIOXIDE 30 mmol/L (21-32); CHLORIDE 97 mmol/L (98-107); CREATININE 4.8 mg/dL (0.6-1.3); GLUCOSE 122 mg/dL (74-106); POTASSIUM 4.9 mmol/L (3.5-5.1); SODIUM SERUM 137 mmol/L (136-145); UREA NITROGEN, BLOOD 32 mg/dL (7-18)
[2017-01-31 23:57] LABS: INR 1.12 (0.87-1.13); PROTHROMBIN TIME 12.1 SECS (9.5-12.7)
[2017-02-01] VITALS (8 sets, daily range): BP systolic 113–142; BP diastolic 50–81
[2017-02-01 00:02] LABS: TROPONIN I 0.615 ng/mL (0.00-0.056)
[2017-02-01 00:29] LABS: B-TYPE NATRIURETIC PEPTIDE 172394 PG/ML (0-125)
--- NOTE | 2017-02-01 00:35 | NUR ---
DR SCHRADER PAGED PER DR PATINO.
--- NOTE | 2017-02-01 01:05 | NUR ---
DR SCHRADER REPAGED.
[2017-02-01] MEDS ORDERED: IV NS 0.9% 1,000 ML IV PRN (01:26)
[2017-02-01] MEDS ORDERED: Z GUARD REMEDY 2 OZ OINT TP PRN (01:30)
[2017-02-01] MEDS ORDERED: MAGNESIUM HYDROXIDE 30 ML UDC PO PRN (01:30)
[2017-02-01] MEDS ORDERED: NITROGLYCERIN PACKET 1 GM PACKET TD PRN (01:30)
[2017-02-01] MEDS ORDERED: HYDROCODONE/APAP 5/325MG 1 EACH TABLET PO PRN (01:30)
[2017-02-01] MEDS ORDERED: ACETAMINOPHEN 325 MG TABLET PO PRN (01:30)
[2017-02-01] MEDS ORDERED: MAG HYDROX/AL HYDROX/SIMETH 30 ML UDC PO PRN (01:30)
[2017-02-01] MEDS ORDERED: ONDANSETRON HCL/PF 4 MG/2 ML VIAL IVP PRN (01:30)
[2017-02-01] MEDS ORDERED: NITROGLYCERIN 0.4 MG/TAB BOTTLE SL PRN (01:30)
[2017-02-01] MEDS ORDERED: MORPHINE SULFATE INJ 2 MG/ML DISP.SYRIN IV PRN (01:30)
--- NOTE | 2017-02-01 01:43 | NUR ---
PT TRANSPORTED TO TELE BED WITHOUT INCIDENT
--- NOTE | 2017-02-01 02:00 | NUR ---
CARPET INSPECTOR NOTE RECEIVED PATIENT FROM ER VIA GURNEY, PATIENT IS ALERT AND ORIENTEDX3, EGYPTIAN SPEAKER, AMBULATORY WITH ASSIST, FAMILY AT BEDSIDE. IV ON RIGHT WRIST 18G, LEFT UPPER ARM HD ACCESS PRESENT. WILL CONNECT TO TELE MONITOR. NO EDEMA, SKIN IS INTACT. PATIENT COMPLAINS OF CHEST TIGHTNESS AND STATED THAT IT FEELS LIKE SOMETHING HEAVY IS SITTING ON MY CHEST. SRX2, BED IN LOW POSITION, CALL LIGHT WITHIN REACH, WILL CONTINUE TO MONITOR PATIENT.
[2017-02-01 06:49] LABS: BASOPHILS % (AUTO) 0.2 % (0.0-2.0); EOSINOPHILS # (AUTO) 0.1 /CMM (0.0-0.7); HEMATOCRIT 32 % (39-51); HEMOGLOBIN 10.9 g/dL (13.5-17.5); LYMPHOCYTES # (AUTO) 0.8 /CMM (0.8-4.8); LYMPHOCYTES % (AUTO) 8.6 % (20.0-44.0); MEAN CORPUSCULAR HEMOGLOBIN 31 PG (26.0-33.0); MEAN CORPUSCULAR HGB CONC 34 g/dl (31.0-36.0); MEAN CORPUSCULAR VOLUME 91 fL (80-96); MONOCYTES # (AUTO) 0.9 /CMM (0.1-1.30); MONOCYTES % (AUTO) 9.8 % (2.0-12.0); NEUTROPHILS # (AUTO) 7.4 /CMM (1.8-8.9); NEUTROPHILS % (AUTO) 80.4 % (43.0-81.0); PLATELET COUNT (AUTO) 323 /CMM (150-450); RDW COEFFICIENT OF VARIATION 14.6 (11.5-15.0); RED BLOOD CELL COUNT(AUTO) 3.53 MIL/uL (4.5-6.0); WHITE BLOOD COUNT (AUTO) 9.2 K/uL (4.3-11.0)
--- NOTE | 2017-02-01 06:51 | NUR ---
BONE DENSITY TECHNICIAN NOTE NO ACUTE DISTRESS NOTED SINCE ADMISSION. IV ON RIGHT AC IS PATENT AND INTACT, PATIENT HAS NON-LABORED BREATHING, RESTING IN BED COMFORTABLY. TELE MONITOR SR 83. WILL ENDORSE TO DAY SHIFT NURSE FOR TRACEY.
[2017-02-01 07:13] LABS: CALCIUM, SERUM 8.3 mg/dL (8.5-10.1); CARBON DIOXIDE 30 mmol/L (21-32); CHLORIDE 98 mmol/L (98-107); CREATININE 5.3 mg/dL (0.6-1.3); GLUCOSE 126 mg/dL (74-106); PHOSPHORUS 5.3 mg/dL (2.5-4.9); POTASSIUM 5.2 mmol/L (3.5-5.1); SODIUM SERUM 138 mmol/L (136-145); UREA NITROGEN, BLOOD 38 mg/dL (7-18)
[2017-02-01] MEDS: PANTOPRAZOLE 40 MG TABLET.DR PO SCH (07:30)
--- NOTE | 2017-02-01 07:45 | NUR ---
LAB CALLED, TROPONIN I = 0.971. NOTIFIED SLUDGE FILTRATION ATTENDANT.
--- NOTE | 2017-02-01 08:00 | NUR ---
RN OPENING NOTE RECEIVED PATIENT AWAKE, ALERT AND ORIENTED X4. NO ACUTE DISTRESS NOTED. TELEMETRY SINUS RHYTHM 83. BED IN LOWEST POSITION, SIDE RAILS UP X2. CALL LIGHT WITHIN REACH. WILL CONTINUE TO MONITOR..
[2017-02-01] MEDS ORDERED: ASPIRIN 81 MG TAB.CHEW PO SCH (09:00)
[2017-02-01] MEDS: LOSARTAN POTASSIUM 50 MG TABLET PO SCH (09:00)
[2017-02-01] MEDS: ISOSORBIDE DINITRATE (10MG) 10 MG TABLET PO SCH ×3 (09:00→18:57)
[2017-02-01] MEDS: CARVEDILOL 6.25 MG TABLET PO SCH ×3 (09:00→18:58)
[2017-02-01] MEDS: ASPIRIN 81 MG TAB.CHEW PO SCH (09:00)
[2017-02-01] MEDS: ALLOPURINOL 100 MG TABLET PO SCH (09:00)
[2017-02-01] MEDS ORDERED: CLONIDINE HCL 0.2 MG TABLET PO SCH (09:00)
[2017-02-01] MEDS: NIFEdipine XL 60 MG TAB PO SCH (09:00)
[2017-02-01] MEDS ORDERED: ENOXAPARIN SODIUM 60 MG/0.6 ML DISP.SYRIN SQ SCH (09:00)
--- NOTE | 2017-02-01 11:00 | NUR ---
LEXISCAN STRESS TEST CONSENT HAS BEEN SIGNED BY PT AFTER EXPLAINING THE PROCEDURE TO THE PT.
[2017-02-01] MEDS ORDERED: DEXTROSE 50%-WATER 50 ML DISP.SYRIN IV PRN (11:30)
[2017-02-01] MEDS ORDERED: HEPARIN SODIUM, PORCINE 5000 UNITS/1 ML VIAL IV ONE (12:30)
--- NOTE | 2017-02-01 12:30 | NUR ---
NOTIFIED DR FRANCOIS OF PT'S TROPONIN LEVEL OF 1.656.CALLED [facility] TO FOLLOW UP ON PT'S MEDICAL RECORDS.THEY STATED THAT THEY ARE GATHERING PT'S MEDICAL RECORDS RIGHT NOW AND WILL BE SENT ELECTRONICALLY.
--- NOTE | 2017-02-01 13:00 | NUR ---
RECEIVED PT'S MEDICAL RECORDS PAPERS FROM [facility] AND -PLACED IN THE CHART.
[2017-02-01] MEDS: SEVELAMER CARBONATE 800 MG TABLET PO SCH ×2 (13:13→18:02)
[2017-02-01] MEDS: CLONIDINE HCL 0.1 MG TABLET PO SCH ×3 (13:13→18:59)
[2017-02-01] MEDS: BLOOD SUGAR DIAGNOSTIC 1 EACH STRIP IN SCH ×3 (13:15→21:39)
[2017-02-01] MEDS ORDERED: IV SET PRIMARY PUMP SET 1 EA INFUS.SET MC ONE (13:51)
[2017-02-01] MEDS: HEPARIN INFUSION/D5W 500 ML IV PRN ×2 (14:01→22:31)
[2017-02-01] MEDS ORDERED: OLME1TAB26 PO (15:41)
[2017-02-01] MEDS: [UNRECOGNIZED DRUG - OTHER] PO SCH (17:00)
[2017-02-01] MEDS: OLMESARTAN PO SCH (17:00)
[2017-02-01] MEDS: HYDROCHLOROTHIAZIDE PO SCH (17:00)
[2017-02-01] MEDS: AMLODIPINE PO SCH (17:00)
--- NOTE | 2017-02-01 17:00 | NUR ---
PT IS WITH ONGOING HEMODIALYSIS HELD PT'S BP MEDS AND HEPARIN DRIP AT THIS TIME AND WE'LL RECHECK POST HD PROCEDURE.
--- NOTE | 2017-02-01 17:22 | NUR ---
CLARIFIED WITH DR FRANCOIS REGARDING THE CANCELLATION OF LEXISCAN STRESS TEST PER [place] OF NUCLEAR MED AND IS CONFIRMED CANCELLED.
[2017-02-01] MEDS: ATORVASTATIN 40 MG TABLET PO SCH (18:02)
--- NOTE | 2017-02-01 18:50 | NUR ---
RN CLOSING NOTES PATIENT RESTING IN BED. NO ACUTE DISTRESS NOTED. BED IN LOWEST POSITION. SIDE RAILS UP X2. CALL LIGHT WITHIN REACH. ENDORSED TO RN ORTHO RN FOR TRACEY.
--- NOTE | 2017-02-01 19:05 | NUR ---
RN NOTE RECEIVED REPORT. PT AWAKE AND ALERT X4, C/O MIDSTERNAL CP 4/10 THAT DOES NOT RADIATE. NO SOB, SKIN WARM TO TOUCH, NON DIAPHORETIC. TELE SHOWS SR IN 80'S. HEPARIN DRIP INFUSING WELL IN R AC. NO S/S OF ANY DISTRESS AT THIS TIME. SAFETY AND COMFORT MEASURES RENDERED. WILL CONT TO MONITOR.
[2017-02-01] MEDS: ALBUTEROL FS 2.5 MG/3 ML VIAL.NEB CONTNEB SCH ×2 (20:23→20:27)
[2017-02-01] MEDS: TAMSULOSIN 0.4 MG CAP.SR.24H PO SCH (21:40)
[2017-02-01] MEDS: INSULIN DETEMIR 100 UNIT/ML CARTRIDGE SQ SCH (21:42)
[2017-02-01] MEDS: INSULIN REGULAR, HUMAN 100 UNIT/ML 3 ML VIAL SQ PRN (21:45)
[2017-02-01] MEDS ORDERED: ZOLPIDEM TARTRATE 5 MG TABLET PO PRN (22:00)
[2017-02-01] MEDS ORDERED: ZOLPIDEM TARTRATE 5 MG TABLET PO SCH (22:00)
--- NOTE | 2017-02-01 23:30 | NUR ---
RN NOTE PT APPT 34 - WILL ADJUST HEPARIN DRIP PER PROTOCOL. 3,000 UNIT BOLUS GIVEN. ALSO INCREASED DOSE 150 ML/HR, PER PROTOCOL. DRIP RATE NOW AT 975 U/HR (19.5ML/HR). REDRAW APTT AT 0430. WILL MONITOR.
[2017-02-02] VITALS: BP 124/56
[2017-02-02] MEDS: ALBUTEROL FS 2.5 MG/3 ML VIAL.NEB CONTNEB SCH ×4 (01:43→19:46)
[2017-02-02 04:00] VITALS: BP 119/62
[2017-02-02 04:48] LABS: BASOPHILS % (AUTO) 0.2 % (0.0-2.0); EOSINOPHILS # (AUTO) 0.1 /CMM (0.0-0.7); EOSINOPHILS % (AUTO) 1.3 % (0.0-6.0); HEMATOCRIT 30 % (39-51); LYMPHOCYTES # (AUTO) 0.9 /CMM (0.8-4.8); LYMPHOCYTES % (AUTO) 11.5 % (20.0-44.0); MEAN CORPUSCULAR HEMOGLOBIN 31 PG (26.0-33.0); MEAN CORPUSCULAR HGB CONC 33 g/dl (31.0-36.0); MEAN CORPUSCULAR VOLUME 92 fL (80-96); MONOCYTES # (AUTO) 0.8 /CMM (0.1-1.30); MONOCYTES % (AUTO) 10.7 % (2.0-12.0); NEUTROPHILS % (AUTO) 76.3 % (43.0-81.0); PLATELET COUNT (AUTO) 268 /CMM (150-450); RDW COEFFICIENT OF VARIATION 15.1 (11.5-15.0); RED BLOOD CELL COUNT(AUTO) 3.25 MIL/uL (4.5-6.0); WHITE BLOOD COUNT (AUTO) 7.9 K/uL (4.3-11.0)
[2017-02-02 05:14] LABS: ALANINE AMINOTRANSFERASE 29 U/L (12-78); ALBUMIN 2.1 g/dL (3.4-5.0); ALKALINE PHOSPHATASE 221 U/L (46-116); ASPARTATE AMINOTRANSFERASE 31 U/L (15-37); BILIRUBIN,TOTAL 0.4 mg/dL (0.2-1.0); CALCIUM, SERUM 7.9 mg/dL (8.5-10.1); CARBON DIOXIDE 29 mmol/L (21-32); CHLORIDE 101 mmol/L (98-107); CREATININE 5.1 mg/dL (0.6-1.3); GLUCOSE 142 mg/dL (74-106); PHOSPHORUS 5.7 mg/dL (2.5-4.9); POTASSIUM 4.7 mmol/L (3.5-5.1); SODIUM SERUM 139 mmol/L (136-145); TOTAL PROTEIN, SERUM 6.4 g/dL (6.4-8.2); UREA NITROGEN, BLOOD 32 mg/dL (7-18)
[2017-02-02 05:18] LABS: TROPONIN I 3.338 ng/mL (0.00-0.056)
--- NOTE | 2017-02-02 05:30 | NUR ---
RN NOTE MD OLIVEROS MADE AWARE OF PT CRITICAL LAB TROP 3.336 AND APTT 106. PT NO C/O CP OR SOB - SKIN WARM TO TOUCH, NON-DIAPHORETIC. VSS. TELE SHOWS ST. NO NEW ORDERS AT THIS TIME- WILL MONITOR. PER HEPARIN DRIP PROTOCOL, INFUSION WILL BE HELD FOR 1 HOUR AND WILL BE RESTARTED AT 0630 AT 825 U/HR. PT STABLE AT THIS TIME. Addendum: 02/02/17 at 0700 by OMA STALLINGS RN ERIKA SHOWS SR*
--- NOTE | 2017-02-02 06:30 | NUR ---
RN NOTE HEPARIN DRIP RESTARTED AT 825 U/HR. NO S/S OF ANY DISTRESS.
[2017-02-02] MEDS: BLOOD SUGAR DIAGNOSTIC 1 EACH STRIP IN SCH ×4 (06:43→21:09)
--- NOTE | 2017-02-02 06:56 | NUR ---
RN NOTE PT SLEPT WELL AT NIGHT. AAOX4, NO C/O ANY PAIN OR DISCOMFORT AT THIS TIME. DENIES CP/SOB. ON NC 2L. TELE SHOWS SR IN 70'S. TOLERATING HEPARIN DRIP WELL AT 825 U/HR IN R AC. APTT REDRAW AT 1130. NO DISTRESS AT THIS TIME. CALL LIGHT IN REACH, WILL F/U WITH DAY SHIFT FOR TRACEY.
[2017-02-02 08:00] VITALS: BP 120/58
[2017-02-02] MEDS ORDERED: REGADENOSON 0.4 MG/5 ML DISP.SYRIN IVP ONE (08:00)
--- NOTE | 2017-02-02 08:00 | NUR ---
MACHINE GUIDE BASE WINDER AM NOTES RECEIVED PT AWAKE AND ALERT X4,WITH ONGOING HEPARIN DRIP OF 825 UNITS/HR=16.5 ML/HR INFUSING WELL TO RT AC INFUSING WELL.PT DENIES DISCOMFORT AND SOB, SKIN WARM TO TOUCH, NON DIAPHORETIC. TELE SHOWS SR WITH HR 87.NO S/S OF ANY DISTRESS AT THIS TIME. SAFETY AND COMFORT MEASURES RENDERED. WILL CONT TO MONITOR.
[2017-02-02] MEDS: PANTOPRAZOLE 40 MG TABLET.DR PO SCH (08:30)
[2017-02-02] MEDS: NIFEdipine XL 60 MG TAB PO SCH (09:00)
[2017-02-02] MEDS: CLONIDINE HCL 0.1 MG TABLET PO SCH ×3 (09:00→17:00)
[2017-02-02] MEDS: CARVEDILOL 6.25 MG TABLET PO SCH ×2 (09:00→17:00)
[2017-02-02] MEDS: LOSARTAN POTASSIUM 50 MG TABLET PO SCH (09:00)
--- NOTE | 2017-02-02 09:40 | NUR ---
PATIENT WAS BROUGHT FOR CT SCAN OF CHEST AND NECK.
--- NOTE | 2017-02-02 10:30 | NUR ---
PATIENT BROUGHT BACK TO THE UNIT FROM CT. PATIENT NO DISTRESS. VITAL SIGNS STABLE. WILL CONTINUE TO MONITOR
[2017-02-02] MEDS: ALLOPURINOL 100 MG TABLET PO SCH (10:40)
[2017-02-02] MEDS: ASPIRIN 81 MG TAB.CHEW PO SCH (10:44)
[2017-02-02] MEDS: ISOSORBIDE DINITRATE (10MG) 10 MG TABLET PO SCH ×2 (10:44→17:33)
[2017-02-02] MEDS: SEVELAMER CARBONATE 800 MG TABLET PO SCH ×3 (10:45→17:32)
[2017-02-02] MEDS: HYDROCHLOROTHIAZIDE PO SCH (10:47)
[2017-02-02] MEDS: [UNRECOGNIZED DRUG - OTHER] PO SCH (10:47)
[2017-02-02] MEDS: AMLODIPINE PO SCH (10:47)
[2017-02-02] MEDS: OLMESARTAN PO SCH (10:47)
[2017-02-02] MEDS: INSULIN REGULAR, HUMAN 100 UNIT/ML 3 ML VIAL SQ PRN (13:04)
[2017-02-02 16:00] VITALS: BP 115/57
[2017-02-02] MEDS: ATORVASTATIN 40 MG TABLET PO SCH (17:46)
--- NOTE | 2017-02-02 18:30 | NUR ---
APTT LEVEL IS 55 -NO CHANGE.PRESENT HEPARIN DRIP LEVEL IS RUNNING AT 825 UNITS/HR =16.5 ML/HR INFUSING WELL.IV SPREADSHEET SHOWS THAT HEPARIN INFUSION RECEIVED IS RUNNING AT 19.5 ML/HR WHEN THE IV PUMP ACTUALLY IS RUNNING AT 825 UNITS/HR=16.5 ML/HR.NO CHANGES DONE WITH APTT LEVEL OF 55.
--- NOTE | 2017-02-02 19:00 | NUR ---
PATIENT IN BED RESTING WITH STABLE VITAL SIGNS. NO DISTRESS. BED IN LOWEST POSITION. CALL LIGHT WITHIN REACH. ENDORSED TO MICROBIOLOGY TECHNICIAN RN FOR TRACEY.
--- NOTE | 2017-02-02 19:30 | NUR ---
RN NOTES RECEIVED PATIENT IN BED AWAKE, AO X 3, ABLE TO MAKE NEEDS KNOWN. NO ACUTE DISTRESS NOTED. DENIES ANY PAIN AT THIS TIME. NO SYMPTOMS OF HYPER/HYPOGLYCEMIA. IV SITE PATENT, INTACT; HEPARIN DRIP INFUSING ORDERED. NO SIGNS OF BLEEDING NOTED. HD CATH INTACT. ON LOW BED WITH BILATERAL UPPER SIDE RAILS UP. CALL LIGHT WITHIN EASY REACH. WILL CONTINUE TO MONITOR.
[2017-02-02 20:00] VITALS: BP 118/56
[2017-02-02] MEDS: HEPARIN INFUSION/D5W 500 ML IV PRN (20:43)
[2017-02-02] MEDS: TAMSULOSIN 0.4 MG CAP.SR.24H PO SCH (21:10)
[2017-02-02] MEDS: INSULIN DETEMIR 100 UNIT/ML CARTRIDGE SQ SCH (22:00)
[2017-02-03] VITALS: BP 128/83
[2017-02-03] MEDS: ALBUTEROL FS 2.5 MG/3 ML VIAL.NEB CONTNEB SCH ×3 (01:30→13:24)
[2017-02-03 04:00] VITALS: BP 111/56
--- NOTE | 2017-02-03 06:10 | NUR ---
RN NOTES PATIENT ASLEEP, EASILY AROUSABLE. RESPIRATIONS EVEN. NO SIGNS OF PAIN NOTED. DUE MEDS GIVEN WITH NO ASE NOTED. NEEDS ATTENDED. SAFETY PRECAUTIONS AND COMFORT MEASURES IN PLACE. WILL GIVE REPORT TO DAY SHIFT FOR CONTINUITY OF CARE.
[2017-02-03] MEDS: PANTOPRAZOLE 40 MG TABLET.DR PO SCH (06:33)
[2017-02-03] MEDS: BLOOD SUGAR DIAGNOSTIC 1 EACH STRIP IN SCH ×2 (06:33→11:43)
[2017-02-03 06:44] LABS: BASOPHILS % (AUTO) 0.4 % (0.0-2.0); EOSINOPHILS # (AUTO) 0.2 /CMM (0.0-0.7); EOSINOPHILS % (AUTO) 2.8 % (0.0-6.0); HEMATOCRIT 29 % (39-51); HEMOGLOBIN 9.5 g/dL (13.5-17.5); LYMPHOCYTES # (AUTO) 0.9 /CMM (0.8-4.8); LYMPHOCYTES % (AUTO) 11.3 % (20.0-44.0); MEAN CORPUSCULAR HEMOGLOBIN 30 PG (26.0-33.0); MEAN CORPUSCULAR HGB CONC 33 g/dl (31.0-36.0); MEAN CORPUSCULAR VOLUME 91 fL (80-96); MONOCYTES # (AUTO) 0.9 /CMM (0.1-1.30); MONOCYTES % (AUTO) 11.2 % (2.0-12.0); NEUTROPHILS # (AUTO) 5.7 /CMM (1.8-8.9); NEUTROPHILS % (AUTO) 74.3 % (43.0-81.0); PLATELET COUNT (AUTO) 248 /CMM (150-450); RDW COEFFICIENT OF VARIATION 14.7 (11.5-15.0); RED BLOOD CELL COUNT(AUTO) 3.12 MIL/uL (4.5-6.0); WHITE BLOOD COUNT (AUTO) 7.7 K/uL (4.3-11.0)
[2017-02-03 06:59] LABS: ALANINE AMINOTRANSFERASE 22 U/L (12-78); ALBUMIN 2.1 g/dL (3.4-5.0); ALKALINE PHOSPHATASE 196 U/L (46-116); ASPARTATE AMINOTRANSFERASE 24 U/L (15-37); BILIRUBIN,TOTAL 0.3 mg/dL (0.2-1.0); CALCIUM, SERUM 7.8 mg/dL (8.5-10.1); CARBON DIOXIDE 26 mmol/L (21-32); CHLORIDE 100 mmol/L (98-107); CREATININE 6.3 mg/dL (0.6-1.3); GLUCOSE 131 mg/dL (74-106); MAGNESIUM 2.1 mg/dL (1.8-2.4); PHOSPHORUS 7.4 mg/dL (2.5-4.9); POTASSIUM 4.5 mmol/L (3.5-5.1); SODIUM SERUM 138 mmol/L (136-145); TOTAL PROTEIN, SERUM 6.2 g/dL (6.4-8.2); UREA NITROGEN, BLOOD 44 mg/dL (7-18)
[2017-02-03 07:06] VITALS: BP 120/58
--- NOTE | 2017-02-03 07:25 | NUR ---
RN OPEN NOTES COVERING FOR ISAI: RECEIVED REPORT FROM FIELD MANAGER NURSE. PATIENT IS IN BED, AWAKE ALERT AND ORIENTED TO TIME, PLACE AND NAME. DENIED PAIN. HEPARIN DRIP IS AT 825 UNITS/HR. WILL ENDORSE TO AM NURSEISAI.
--- NOTE | 2017-02-03 07:41 | NUR ---
TROPONIN LEVEL LAB CALLED REGARDING CRITICAL VALUE TROPONIN OF 2.450. TROPONIN IS TRENDING DOWN.
--- NOTE | 2017-02-03 07:51 | NUR ---
GAVE REPORT TO GILLIAN ALEX RN
--- NOTE | 2017-02-03 07:55 | NUR ---
MS RN MS RN RECEIVED ON BED, AWAKE,ALERT,ORIENTED X3, NOT IN ANY FORM OF DISTRESS,RESPIRATIONS EVEN AND UNLABORED,NO SOB NOTED, PATIENT ON HEP DRIP AT 825ML/HR, NOT IN ANY FORM OF DISTRESS, ALL NEEDS ATTENDED.
[2017-02-03 08:00] VITALS: BP 120/58
[2017-02-03] MEDS: CARVEDILOL 6.25 MG TABLET PO SCH (08:50)
[2017-02-03] MEDS: CLONIDINE HCL 0.1 MG TABLET PO SCH ×2 (08:50→13:00)
[2017-02-03] MEDS: LOSARTAN POTASSIUM 50 MG TABLET PO SCH (08:50)
[2017-02-03] MEDS: ISOSORBIDE DINITRATE (10MG) 10 MG TABLET PO SCH (08:51)
[2017-02-03] MEDS: NIFEdipine XL 60 MG TAB PO SCH (08:51)
[2017-02-03] MEDS: HYDROCHLOROTHIAZIDE PO SCH (09:00)
[2017-02-03] MEDS: [UNRECOGNIZED DRUG - OTHER] PO SCH (09:00)
[2017-02-03] MEDS: AMLODIPINE PO SCH (09:00)
[2017-02-03] MEDS: OLMESARTAN PO SCH (09:00)
--- NOTE | 2017-02-03 09:00 | NUR ---
MS RN BREAKFAST SERVED,DUE MEDS GIVEN,TOLERATED WELL. PATIENT'S B/P MEDS HELD B/P WNL.
[2017-02-03] MEDS: SEVELAMER CARBONATE 800 MG TABLET PO SCH ×2 (09:01→14:51)
[2017-02-03] MEDS: ASPIRIN 81 MG TAB.CHEW PO SCH (09:02)
[2017-02-03] MEDS: ALLOPURINOL 100 MG TABLET PO SCH (09:02)
[2017-02-03] MEDS: INSULIN REGULAR, HUMAN 100 UNIT/ML 3 ML VIAL SQ PRN (11:45)
[2017-02-03 13:00] VITALS: BP 110/65
--- NOTE | 2017-02-03 13:00 | NUR ---
MS RN ON BED, NO DISTRESS NOTED,DENIES PAIN AT THIS TIME
--- NOTE | 2017-02-03 15:30 | NUR ---
MS RN PATIENT'S DISCHARGE INSTRUCTIONS GIVEN TO RELAVITE5, ALL NEEDS ATTENDED.
[2017-02-05] MEDS ORDERED: ERGOCALCIFEROL (VITAMIN D 2) 50,000 UNIT CAPSULE PO SCH (09:00)
== END 2017-02-03 15:50 | disposition home or self-care (01) | DRG 280 ==
LOC: ER 23:16 → TELE 02-01 01:19 → MED 02-03 08:41
PROVIDERS: ADMIT Family Medicine; ATTEND Family Medicine
PROC: 5A1D00Z (ICD-10-PCS; principal; 2017-02-01)
DX: I13.2 Hypertensive heart and chronic kidney disease with heart failure and with stage 5 chronic kidney disease, or end stage renal disease (principal); N18.6 End stage renal disease; I21.4 Non-ST elevation (NSTEMI) myocardial infarction; I50.33 Acute on chronic diastolic (congestive) heart failure; J90 Pleural effusion, not elsewhere classified; I23.7 Postinfarction angina; J44.1 Chronic obstructive pulmonary disease with (acute) exacerbation; J98.11 Atelectasis; Z99.2 Dependence on renal dialysis; E11.22 Type 2 diabetes mellitus with diabetic chronic kidney disease; D63.8 Anemia in other chronic diseases classified elsewhere; E78.5 Hyperlipidemia, unspecified; E83.39 Other disorders of phosphorus metabolism; E87.5 Hyperkalemia; F03.90 Unspecified dementia, unspecified severity, without behavioral disturbance, psychotic disturbance, mood disturbance, and anxiety; F41.0 Panic disorder [episodic paroxysmal anxiety]; I25.10 Atherosclerotic heart disease of native coronary artery without angina pectoris; Z86.73 Personal history of transient ischemic attack (TIA), and cerebral infarction without residual deficits; M81.0 Age-related osteoporosis without current pathological fracture; N40.0 Benign prostatic hyperplasia without lower urinary tract symptoms; Z95.1 Presence of aortocoronary bypass graft; F32.9 Major depressive disorder, single episode, unspecified; F43.10 Post-traumatic stress disorder, unspecified; J45.909 Unspecified asthma, uncomplicated; E83.9 Disorder of mineral metabolism, unspecified; R59.0 Localized enlarged lymph nodes; Z79.899 Other long term (current) drug therapy; K80.20 Calculus of gallbladder without cholecystitis without obstruction
CPT/HCPCS: 36415; 70490-TC; 71010-TC; 71250-TC; 80048-TC; 80053-TC; 82962-TC; 83735-TC; 83880; 84100-TC; 84484-TC; 85025-TC; 85730-TC; 87081-TC; 90935-TC; 94799-TC; A4606; A6402; J1644; J1815; Z7610

== ENCOUNTER 2017-08-19 18:46 | Inpatient (IN) | payer MEDICARE, MEDICAID ==
[~2017-08-19] VITALS: Ht 157.5 cm; Wt 59.0 kg
[~2017-08-19 18:46] MED LIST changes: +ASPI-1169 PO; -ASPI81TA2 PO; -OLME1TAB PO; +OLME1TAB16 PO; +OLME1TAB26 PO; -ZOLP5TAB7 PO; +ZOLP5TAB8 PO
--- NOTE | 2017-08-19 19:00 | NUR ---
PT REPORT GIVEN TO COREY CHENEY
--- NOTE | 2017-08-19 19:03 | NUR ---
CALLED CODE STEMI
--- NOTE | 2017-08-19 19:04 | NUR ---
CALLED ANITA CEDILLO [facility], SPOKE WITH GIGI. FAXED EKG AND FACE SHEET TO [phone]
[2017-08-19] MEDS ORDERED: ASPIRIN 325 MG TABLET ONE (19:11)
[2017-08-19] MEDS ORDERED: MORPHINE SULFATE INJ 4 MG/ML DISP.SYRIN ONE (19:11)
[2017-08-19] MEDS: ASPIRIN 325 MG TABLET PO ONE (19:14)
[2017-08-19] MEDS: MORPHINE SULFATE INJ 2 MG/ML DISP.SYRIN IV ONE (19:15)
--- NOTE | 2017-08-19 19:16 | NUR ---
MEDICATED PATIENT ORDERED BY DR DAMICO.
[2017-08-19 19:22] LABS: BASOPHILS % (AUTO) 0.3 % (0.0-2.0); EOSINOPHILS % (AUTO) 0.8 % (0.0-6.0); HEMATOCRIT 34 % (39-51); HEMOGLOBIN 11.9 g/dL (13.5-17.5); MEAN CORPUSCULAR HEMOGLOBIN 32 PG (26.0-33.0); MEAN CORPUSCULAR HGB CONC 35 g/dl (31.0-36.0); MEAN CORPUSCULAR VOLUME 90 fL (80-96); MONOCYTES # (AUTO) 0.4 /CMM (0.1-1.30); MONOCYTES % (AUTO) 6.3 % (2.0-12.0); NEUTROPHILS # (AUTO) 4.3 /CMM (1.8-8.9); NEUTROPHILS % (AUTO) 75.6 % (43.0-81.0); PLATELET COUNT (AUTO) 191 /CMM (150-450); RDW COEFFICIENT OF VARIATION 12.1 (11.5-15.0); RED BLOOD CELL COUNT(AUTO) 3.76 MIL/uL (4.5-6.0); WHITE BLOOD COUNT (AUTO) 5.7 K/uL (4.3-11.0)
--- NOTE | 2017-08-19 19:25 | NUR ---
GIGI CALLED FROM [facility] AND STATES THEIR [facility]PPER LE[facility] [address] DR CLEMENS DECLINED TO ACCEPT THE PATIENT MADE AWARE
--- NOTE | 2017-08-19 19:28 | NUR ---
CALLED DR FAUSTIN FROM [facility], TRANSFERRED CALL TO DR DAMICO
[2017-08-19 19:31] LABS: CALCIUM, SERUM 8.9 mg/dL (8.5-10.1); CARBON DIOXIDE 32 mmol/L (21-32); CHLORIDE 101 mmol/L (98-107); CREATININE 3.5 mg/dL (0.6-1.3); GLUCOSE 234 mg/dL (74-106); POTASSIUM 4.2 mmol/L (3.5-5.1); SODIUM SERUM 138 mmol/L (136-145); UREA NITROGEN, BLOOD 33 mg/dL (7-18)
--- NOTE | 2017-08-19 19:32 | NUR ---
[facility] TAM[facility] ACCEPTED PATIENT Addendum: 08/19/17 at [address] DAMICO'S CONVERSATION WITH DR FAUSTIN, [facility] TAM[facility] IS ACCEPTING THE PATIENT
--- NOTE | 2017-08-19 19:34 | NUR ---
INSTRUCTED BY DR DAMICO TO CALL 911 FOR TRANSFER TO [facility]
--- NOTE | 2017-08-19 19:35 | NUR ---
CALLED [address] [facility]. SPOKE WITH TRANSPLANT NURSE 122.
[2017-08-19 19:36] LABS: INR 0.99 (0.87-1.13); PROTHROMBIN TIME 10.3 SECS (9.5-12.7)
[2017-08-19 19:40] LABS: TROPONIN I 0.045 ng/mL (0.00-0.056)
--- NOTE | 2017-08-19 19:47 | NUR ---
REPORT GIVEN TO [facility] FOR TRACEY BY PAOLO CHENEY.
--- NOTE | 2017-08-19 19:47 | NUR ---
PER SUPPORT GROUP MANAGER AT [facility], THEY ARE NO LONGER ACCEPTING PATIENT
--- NOTE | 2017-08-19 20:09 | NUR ---
CALLED FOR ICU BED
[2017-08-19] MEDS ORDERED: NTG 50 MG/D5W250 ML BOTTL 250 ML IV ONE ×2 (20:28→20:30)
[2017-08-19] MEDS ORDERED: CARVEDILOL 6.25 MG TABLET ONE (20:29)
[2017-08-19] MEDS ORDERED: ENOXAPARIN SODIUM 60 MG/0.6 ML DISP.SYRIN SQ ONE (20:29)
[2017-08-19] MEDS ORDERED: CLOPIDOGREL BISULFATE 75 MG TABLET ONE (20:29)
[2017-08-19] MEDS ORDERED: CARVEDILOL 6.25 MG TABLET PO ONE (20:30)
[2017-08-19] MEDS ORDERED: ENOXAPARIN SODIUM 80 MG/0.8 ML DISP.SYRIN SQ ONE (20:30)
[2017-08-19] MEDS ORDERED: CLOPIDOGREL BISULFATE 75 MG TABLET PO ONE (20:30)
--- NOTE | 2017-08-19 20:42 | NUR ---
SPOKE WITH ZEUS THOMAS WHOM REQUESTED ISSUE BE DISCUSSED WITH ER ADMINISTRATION REGARDING THIS CASE AND THE USE OF 911 FOR TRANSFER.
--- NOTE | 2017-08-19 20:47 | NUR ---
CONFIRMED WITH DR. DAMICO THAT SHE ONLY WANTED ONE EKG; TWO ORDERS FOR EKG IN [facility]. SECOND EKG NOT DONE; MARGAUX STATED SHE DID NOT REQUIRE A SECOND EKG.
--- NOTE | 2017-08-19 20:49 | NUR ---
ICU 251
--- NOTE | 2017-08-19 21:14 | NUR ---
REPORT GIVEN TO LAURY CHENEY FOR ADMISSION AND TRACEY.
[2017-08-19 21:30] VITALS: BP 160/77
--- NOTE | 2017-08-19 21:30 | NUR ---
Transferred patient to icu floor via als protocol, endorsed to Nancy CHENEY at bedside. no incident noted. vss.
--- NOTE | 2017-08-19 21:34 | NUR ---
INSTRUCTED BY DR DAMICO TO CALL 911 FOR TRANSFER TO [facility] Addendum: 08/19/17 at 2151 by WESLEY DUPLICATE NOTE, PREVIOUSLY DOCUMENTED
--- NOTE | 2017-08-19 21:40 | NUR ---
STRUCTURED CABLING TECHNICIAN. ADMISSION. RECEIVED THE PT FROM ER VIA JOHN. AWAKE, ALERT, FOLLOW COMMANDS. CONSUMER AFFAIRS DIRECTOR SHOWING NSR. OXYGEN 2L VIA NASAL CANNULA. SAT 98%. NO ACUTE DISTRESS NOTED. IV RT HAND 18G AND 16G, NITRO DRIP STARTED FROM ER 20MCG. LT HAND AV FISTULA. AFEBRILE. CHEST PAIN 10/07. DR SCHRADER AT BED SIDE. RT SMALL AMPUTATED. 2ND TOE SCAB. PICTURE TAKEN. AND PLACED IN THE CHART.WILL CONTINUE TO,MONITOR VITALS.
[2017-08-19 22:00] VITALS: BP 157/69
[2017-08-19] MEDS ORDERED: MORPHINE SULFATE INJ 2 MG/ML DISP.SYRIN IV PRN (22:00)
[2017-08-19] MEDS ORDERED: DEXTROSE 50%-WATER 50 ML DISP.SYRIN IV PRN (22:00)
[2017-08-19] MEDS ORDERED: ATORVASTATIN 10 MG TABLET PO SCH (22:00)
[2017-08-19 22:30] VITALS: BP 155/60
[2017-08-19] MEDS ORDERED: ATORVASTATIN 10 MG TABLET ONE (22:51)
[2017-08-19 23:00] VITALS: BP 161/67
[2017-08-19] MEDS: ALBUTEROL FS 2.5 MG/3 ML VIAL.NEB NEB SCH (23:30)
[2017-08-19] MEDS ORDERED: NTG 50 MG/D5W250 ML BOTTL 250 ML IV PRN (23:30)
[2017-08-19] MEDS: IPRATROPIUM NEB FS 0.5 MG/2.5 ML AMPUL.NEB NEB SCH (23:30)
[2017-08-19] MEDS: BLOOD SUGAR DIAGNOSTIC 1 EACH STRIP IN SCH (23:48)
[2017-08-20] VITALS (45 sets, daily range): BP systolic 134–169; BP diastolic 42–90
--- NOTE | 2017-08-20 02:00 | NUR ---
CAR HEAD LINER INSTALLER. TROPONIN 1.518. DR SCHRADER MADE AWARE.
--- NOTE | 2017-08-20 03:50 | NUR ---
INVESTIGATIVE ANALYST. AM CARE, ORAL CARE, BED BATH GIVEN. LINEN CHANGED. REMAINING NITRO DRIP 15MCG/MIN. OXYGEN 2L VIA NASAL CANNULA. SAT 98%. NO ACUTE DISTRESS NOTED.DURING SHIFT PT SLEPT WELL. AT THIS TIME PT DINES CHEST PAIN. WILL CONTINUE TO MONITOR VITALS.
[2017-08-20] MEDS: BLOOD SUGAR DIAGNOSTIC 1 EACH STRIP IN SCH ×4 (05:26→23:49)
--- NOTE | 2017-08-20 07:30 | NUR ---
RN NOTES RECEIVED PT IN BED AWAKE ALERT ORIENTED, CHINESE/BARBADIAN SPEAKING. ON O2@2LPM VIA NC. NO ACUTE DISTRESS NOTED. ST ON CCO & PRESIDENT. ONGOING NITRO DRIP@15MICS. DENIES CHEST PAIN AT THIS TIME. KEPT COMFORTABLE, WILL CONT TO MONITOR
[2017-08-20] MEDS: IPRATROPIUM NEB FS 0.5 MG/2.5 ML AMPUL.NEB NEB SCH (07:31)
[2017-08-20] MEDS: ALBUTEROL FS 2.5 MG/3 ML VIAL.NEB NEB SCH (07:31)
--- NOTE | 2017-08-20 07:40 | NUR ---
RN NOTES RECEIVED CRITICAL LAB VALUE TROPONIN 2.3, DR MATHEW WAS CALLED, SPOKE WITH MD REPORTED CURRENT TROPONIN LEVEL, PER DR MATHEW PER CARDIO WILL BE NOTIFIED, SPOKE WITH DR KARINA MD NOTIFIED OF TROPONIN 2.379 PER PT NEEDS TO BE TRANSFERRED [facility] Addendum: 08/20/17 at 0849 by EMELY HARRISON RN RN NOTES RECEIVED CRITICAL LAB VALUE TROPONIN 2.3, DR MATHEW WAS CALLED, SPOKE WITH MD REPORTED CURRENT TROPONIN LEVEL, PER DR MATHEW PER CARDIO WILL BE NOTIFIED, SPOKE WITH DR MOLLY MD NOTIFIED OF TROPONIN 2.379 PER PT NEEDS TO BE TRANSFERRED TO [facility]
[2017-08-20] MEDS: ASPIRIN 81 MG TAB.CHEW PO SCH (09:17)
--- NOTE | 2017-08-20 10:30 | NUR ---
RN NOTES SPOKE WITH DR BARNES PER MD PT NO TRANSFER TO [facility] OR [facility]. NO CHEST PAIN NOTED AT THIS TIME. NO ACUTE CHANGE IN CONDITION NOTED. WILL MONITOR CLOSELY
[2017-08-20] MEDS ORDERED: ENOXAPARIN SODIUM 60 MG/0.6 ML DISP.SYRIN SQ SCH (11:00)
[2017-08-20] MEDS: METOPROLOL TARTRATE 25 MG TABLET PO SCH ×3 (11:12→23:34)
[2017-08-20] MEDS ORDERED: hydrALAZINE HCL IV 20 MG VIAL IV PRN (12:00)
[2017-08-20] MEDS ORDERED: IPRATROPIUM NEB FS 0.5 MG/2.5 ML AMPUL.NEB NEB PRN (12:30)
[2017-08-20] MEDS ORDERED: ALBUTEROL HALF STRENGTH 1.25 MG/3 ML VIAL.NEB NEB PRN (12:30)
[2017-08-20] MEDS: HEPARIN SODIUM, PORCINE 5000 UNITS/1 ML VIAL SQ SCH ×2 (13:38→20:34)
[2017-08-20] MEDS: ISOSORBIDE DINITRATE (20MG) 20 MG TABLET PO SCH ×2 (13:39→20:34)
[2017-08-20] MEDS: FAMOTIDINE (20 MG) 20 MG TABLET PO SCH (17:06)
[2017-08-20] MEDS: INSULIN REGULAR, HUMAN 100 UNIT/ML 3 ML VIAL SQ PRN ×2 (17:30→23:50)
--- NOTE | 2017-08-20 19:10 | NUR ---
RN NOTES PT NOTED WITH CHEST PAIN UPON AMBULATING, PLACED PT ON O2, DR MATHEW NOTIFIED PER MD JUST CHECK TROPONIN Q6H X3 SETS. PLACED PT ON JANINE@2MICS PER MD,. ENDORSED TO BASSAM CHENEY.
--- NOTE | 2017-08-20 20:00 | NUR ---
EPIDEMIOLOGY INTERN - PT. IS AN BELIZEAN SPEAKING MALE. 2 CHECKING CLERK ARE INTERPRETING BELIZEAN LANGUAGE. PT. DENIES ANY CHEST PAIN AT PRESENT. NTG GTT IS OFF. SBP'S ARE 120-150'S. O2/2L/NC W/O2 SATS >95%. LUE FISTULA HAS GOOD BRUIT/GOOD THRILL. PIV'S X 2 HAVE ALL PORTS PATENT TO FLUSH. HEART MONITOR SHOWS SR/SB/BBB. CONT. POC.
--- NOTE | 2017-08-20 23:30 | NUR ---
VISCOSITY WORKER - 22:00 TROPONIN WAS 1.615. TROP. IS TRENDING DOWN. NEXT TROPONIN LEVEL WILL BE WITH AM LABS. PT'S ACCUCHECK WAS #160. AN LETTERSET PRESS SET UP OPERATOR-MAURIZIO CHENEY TOLD HIM HE NEEDS 2 UNITS OF IN - SULIN IN HIS LANGUAGE. PT. IS DEMANDING THAT RN START NTG GTT. PT. STILL DENIES C/P & SBP'S ARE WNL. CONT. POC.
[2017-08-20] MEDS: ATORVASTATIN 40 MG TABLET PO SCH (23:34)
[2017-08-21] VITALS (23 sets, daily range): BP systolic 126–161; BP diastolic 47–62
[2017-08-21] MEDS: ISOSORBIDE DINITRATE (20MG) 20 MG TABLET PO SCH ×3 (05:04→21:13)
[2017-08-21] MEDS: METOPROLOL TARTRATE 25 MG TABLET PO SCH ×4 (05:05→23:57)
[2017-08-21 05:09] LABS: BASOPHILS % (AUTO) 0.7 % (0.0-2.0); EOSINOPHILS # (AUTO) 0.1 /CMM (0.0-0.7); EOSINOPHILS % (AUTO) 1.2 % (0.0-6.0); HEMATOCRIT 36 % (39-51); LYMPHOCYTES # (AUTO) 1.2 /CMM (0.8-4.8); LYMPHOCYTES % (AUTO) 18.4 % (20.0-44.0); MEAN CORPUSCULAR HEMOGLOBIN 31 PG (26.0-33.0); MEAN CORPUSCULAR HGB CONC 34 g/dl (31.0-36.0); MEAN CORPUSCULAR VOLUME 92 fL (80-96); MONOCYTES # (AUTO) 0.4 /CMM (0.1-1.30); MONOCYTES % (AUTO) 6.3 % (2.0-12.0); NEUTROPHILS % (AUTO) 73.4 % (43.0-81.0); PLATELET COUNT (AUTO) 192 /CMM (150-450); RDW COEFFICIENT OF VARIATION 12.5 (11.5-15.0); RED BLOOD CELL COUNT(AUTO) 3.91 MIL/uL (4.5-6.0); WHITE BLOOD COUNT (AUTO) 6.8 K/uL (4.3-11.0)
[2017-08-21 05:25] LABS: ALANINE AMINOTRANSFERASE 20 U/L (12-78); ALKALINE PHOSPHATASE 210 U/L (46-116); ASPARTATE AMINOTRANSFERASE 21 U/L (15-37); BILIRUBIN,TOTAL 0.4 mg/dL (0.2-1.0); CALCIUM, SERUM 8.9 mg/dL (8.5-10.1); CARBON DIOXIDE 30 mmol/L (21-32); CHLORIDE 102 mmol/L (98-107); GLUCOSE 159 mg/dL (74-106); POTASSIUM 5.4 mmol/L (3.5-5.1); SODIUM SERUM 139 mmol/L (136-145); TOTAL PROTEIN, SERUM 7.5 g/dL (6.4-8.2); UREA NITROGEN, BLOOD 59 mg/dL (7-18)
[2017-08-21] MEDS: BLOOD SUGAR DIAGNOSTIC 1 EACH STRIP IN SCH ×4 (06:00→23:56)
--- NOTE | 2017-08-21 06:30 | NUR ---
TENTMAKER - AM LABS COMPLETED. TROPONIN LEVEL PHONED BY CHAVA CAI LEVEL = 1.308/TRENDING DOWN - ARRIETA. PT. IS STILL REFUSING BEDBATH & SKIN PICTURES. PT. ALSO REFUSED INSULIN COVERAGE AT 6:30AM FOR BS LEVEL OF #146. RN(S) JENNY WERE ABLE TO INTERPRET ANGUILLAN LANGUAGE FOR 12HR. SHIFT. CONT. POC.
[2017-08-21] MEDS: INSULIN REGULAR, HUMAN 100 UNIT/ML 3 ML VIAL SQ PRN ×2 (06:45→11:12)
--- NOTE | 2017-08-21 07:10 | NUR ---
RN NOTES RECEIVED PT ON BED,A/O x3, RESPIRATION EVEN AND UNLABORED, ON O2 2L N/C , NO SOB NOTED, HR IN 50'S SB , RIGHT HAND IV G 18 AND R WRIST IV G 16 SITES CDI, LUE FISTULA HAS GOOD BRUIT/GOOD THRILL. SR UP x3, CALL LIGHTS WITHIN EASY REACH, BED LOCKED AND IN LOWEST POSITION , WILL CONTINUE TO MONITOR PT CLSOELY.
[2017-08-21] MEDS: CLOPIDOGREL BISULFATE 75 MG TABLET PO SCH (08:19)
[2017-08-21] MEDS: ASPIRIN 81 MG TAB.CHEW PO SCH (08:19)
[2017-08-21] MEDS: FAMOTIDINE (20 MG) 20 MG TABLET PO SCH (08:19)
[2017-08-21] MEDS: HEPARIN SODIUM, PORCINE 5000 UNITS/1 ML VIAL SQ SCH ×2 (08:20→21:14)
--- NOTE | 2017-08-21 09:49 | NUR ---
RN NOTES PT STABLE , KATIUSKA ANY CHEST PAIN. CONTINUE TO MONITOR .
--- NOTE | 2017-08-21 10:27 | NUR ---
RN NOTES PT REFUSED TO HAVE LINEN CHANGE .
[2017-08-21] MEDS ORDERED: SODIUM POLYSTYRENE SULFONATE 15 G/60 ML BOTTLE PO ONE ×3 (12:30→17:00)
--- NOTE | 2017-08-21 14:30 | NUR ---
RN NOTES CALL MADE TO PHARMACY REGARDING KAYEXALATE,
--- NOTE | 2017-08-21 14:55 | NUR ---
RN NOTES PT TRANSFERRED TO [facility] , ROOM 117-1, IN STABLE CONDITION .
--- NOTE | 2017-08-21 15:00 | NUR ---
MARLENI RN NOTES RECEIVED PATIENT FROM ICU. RHEA RN ASSISTED WITH TRANSLATION. PATIENT DENIES SOB, DIFFICULTY BREATHING OR PAIN AT THIS TIME. WAS INITIALLY REFUSING KAYEXALATE HOWEVER EXPLAINED USAGE AND IMPORTANCE AND PATIENT STATES HE WILL TRY. CALLED PHARMACY THE BARCODE IS NOT SCANNING. PROVIDED PATIENT A BSC. PATIENT NEEDS IN REACH, BED LOWERED AND LOCKED, RAILS UPX3 FOR SAFETY WITH BED ALARM ON. TELE APPLIED SINUS LEXUS 55 AT REST. PATIENT APPEARS STABLE AT THIS TIME.
--- NOTE | 2017-08-21 16:03 | NUR ---
TD RN NOTES DR SCHRADER AT BEDSIDE AND AWARE THAT PATIENT THREW AWAY HALF OF THE KAYEXALATE DOSE. PER MD ORDER ANOTHER DOSE OF KAYEXALATE 30ML.
--- NOTE | 2017-08-21 18:18 | NUR ---
TD RN NOTES STILL WAITING ON KAYEXALATE FROM PHARMACY. WILL GIVE ONCE PROVIDED
--- NOTE | 2017-08-21 18:47 | NUR ---
TD RN CLOSING PATIENT STABLE. TRANSLATION ASSISTED WITH SHRAVAN MORSE. PATIENT DENIES SOB,DIFFICULTY BREATHING OR PAIN AT THIS TIME. COMPLETED KAYEXALATE ORDERED. PATIENT STATES NO NEEDS AT THIS TIME. ALL DUE MEDS GIVEN AND ALL NEEDS ASSESSED. PATIENT INDEPENDENT WITH ADL'S. NEEDS IN REACH. BED LOWERED AND LOCKED, RAILS UPX3 FOR SAFETY AND CARE WILL BE ENDORSED TO RN FOR TRACEY
--- NOTE | 2017-08-21 19:30 | NUR ---
[facility]/RN NOTES: RECEIVED PT. WALKING AROUND THE ROOM W/ STEADY GAIT. RA SAT 95 %. DENIES ANY C/O SOB OR PAIN AT THIS TIME. ON TELE MONITOR SINUS LEXUS @ 55'S. SL ON RH AND R F/A PATENT AND INTACT W/ NO S/S OF INFECTION/INFILTRATION NOTED. CALL LIGHT W/ REACH. ALL NEEDS MEET. WILL CONTINUE TO MONITOR.
[2017-08-21] MEDS: ATORVASTATIN 40 MG TABLET PO SCH (21:13)
[2017-08-22] VITALS: BP 130/61
[2017-08-22] MEDS: INSULIN REGULAR, HUMAN 100 UNIT/ML 3 ML VIAL SQ PRN ×2 (00:01→12:16)
[2017-08-22 04:00] VITALS: BP_SYST 149; BP_DIAS 62; BP_DIAS 84
[2017-08-22] MEDS: BLOOD SUGAR DIAGNOSTIC 1 EACH STRIP IN SCH ×3 (05:10→17:45)
[2017-08-22] MEDS: ISOSORBIDE DINITRATE (20MG) 20 MG TABLET PO SCH ×2 (05:12→12:10)
[2017-08-22] MEDS: METOPROLOL TARTRATE 25 MG TABLET PO SCH ×3 (05:12→17:04)
--- NOTE | 2017-08-22 05:44 | NUR ---
[facility]/MS NOTES: PT. REFUSED INSULIN COVERAGE FOR MIDNIGHT AND 6 AM STATED THAT HIS BLOOD SUGAR DROPS. ON TELE MONITOR SINUS LEXUS 55. O2 SAT RA WAS 90. O2 @ 2LPM VIA N/C . PT. STATED THAT HE WILL ONLY KEEP IT FOR 1 HOUR AND RECHECK IT. WILL CONTINUE TO MONITOR. CALL LIGHT W/ REACH. ALL NEEDS MEET.
[2017-08-22 07:10] LABS: CALCIUM, SERUM 8.3 mg/dL (8.5-10.1); CARBON DIOXIDE 30 mmol/L (21-32); CHLORIDE 103 mmol/L (98-107); CREATININE 7.3 mg/dL (0.6-1.3); GLUCOSE 138 mg/dL (74-106); MAGNESIUM 2.5 mg/dL (1.8-2.4); PHOSPHORUS 5.3 mg/dL (2.5-4.9); SODIUM SERUM 141 mmol/L (136-145); UREA NITROGEN, BLOOD 76 mg/dL (7-18)
--- NOTE | 2017-08-22 07:18 | NUR ---
[facility]/RN NOTES: PT. IN BED SLEEPING W/ RESPIRATION EVEN AND UNLABORED. ON O2 @ 2LPM VIA N/C SAT. 98 %. DENIES ANY C/O PAIN OR DISCOMFORT AT THIS TIME. REPORT GIVEN TO NEXT SHIFT NURSE FOR TRACEY.
[2017-08-22 07:22] LABS: BASOPHILS % (AUTO) 0.8 % (0.0-2.0); EOSINOPHILS # (AUTO) 0.2 /CMM (0.0-0.7); EOSINOPHILS % (AUTO) 2.7 % (0.0-6.0); HEMATOCRIT 31 % (39-51); HEMOGLOBIN 10.9 g/dL (13.5-17.5); LYMPHOCYTES # (AUTO) 1.1 /CMM (0.8-4.8); MEAN CORPUSCULAR HEMOGLOBIN 32 PG (26.0-33.0); MEAN CORPUSCULAR HGB CONC 35 g/dl (31.0-36.0); MEAN CORPUSCULAR VOLUME 92 fL (80-96); MONOCYTES # (AUTO) 0.4 /CMM (0.1-1.30); MONOCYTES % (AUTO) 7.7 % (2.0-12.0); NEUTROPHILS % (AUTO) 69.8 % (43.0-81.0); PLATELET COUNT (AUTO) 187 /CMM (150-450); RDW COEFFICIENT OF VARIATION 12.6 (11.5-15.0); WHITE BLOOD COUNT (AUTO) 5.7 K/uL (4.3-11.0)
--- NOTE | 2017-08-22 07:32 | NUR ---
[facility] RN NOTE PATIENT IN BED , RESTING COMFORTABLY IN BED , BED IN LOWEST AND LOCKED POSITION, ON 2L NC NO SOB NOTED, ON TELE MONITOR SB 58 LT UPPER ARM SHUNT WITH BRUIT SOUND , CALL LIGHT WITHIN REACH BED IN LOWEST AND LOCKED POSITION , WILL CONT TO MONITOR CLOSELY
--- NOTE | 2017-08-22 07:36 | NUR ---
[facility] RN NOTE PATIENT IN BED , RESTING COMFORTABLY , ON TELE MONITOR ST 110 WITH JASMINE CATH TO GRAVITY WITH YELLOW COLOR URINE, ON IVF ORDERED, RT UPPER ARM MID LINE IN PLACE, NO S\S INFECTION NOTED, BED IN LOWEST AND LOCKED POSITION , CALL LIGHT WITHIN REACH, WILL CONT TO MONITOR CLOSELY Addendum: 08/22/17 at 0909 by TANG MACKENZIE RN WRONG CHART WRONG PATIENT ABOVE CHARTING
[2017-08-22 08:00] VITALS: BP 162/52
[2017-08-22] MEDS: FAMOTIDINE (20 MG) 20 MG TABLET PO SCH (08:17)
[2017-08-22] MEDS: ASPIRIN 81 MG TAB.CHEW PO SCH (08:17)
[2017-08-22] MEDS: CLOPIDOGREL BISULFATE 75 MG TABLET PO SCH (08:17)
[2017-08-22] MEDS: HEPARIN SODIUM, PORCINE 5000 UNITS/1 ML VIAL SQ SCH (08:19)
--- NOTE | 2017-08-22 09:13 | NUR ---
[facility] RN NOTE ABLE TO GO TO RESTROOM SELF , ABLE TO URINATE , KEEP CLEAN DRY ,CALL LIGHT WITHIN REACH ,
--- NOTE | 2017-08-22 10:03 | NUR ---
[facility] RN NOTE PER DR ELAINE OK TO DISCHARGE HOME IF CLEAR BY FLASK CARRIER ,CALLED TO DR LUNA BUT DR FRANCOIS CRAWLER DRAGLINE OPERATOR FOR TODAY , AWARE THAT PER DR BASSETT NEED TO SEE PATIENT BEFORE DISCHARGE
[2017-08-22 12:00] VITALS: BP 152/49
--- NOTE | 2017-08-22 14:00 | NUR ---
[facility] RN NOTE DR FRANCOIS AT BEDSIDE ,CARDIOLOGY CONSULT DONE ,OK TO DISCHARGE HOME PER HIS PERSPECTIVE, ALSO AWARE THAT TROPONIN 0.639 STILL OK TO GO HOME AND FOLLOW UP WITH ROCKET SCIENTIST
--- NOTE | 2017-08-22 14:46 | NUR ---
[facility] RN NOTE HD NURSE AT BEDSIDE ,HD STARTED ORDERED WILL F\U
[2017-08-22 16:00] VITALS: BP_SYST 132; BP_SYST 134; BP_DIAS 56
--- NOTE | 2017-08-22 17:15 | NUR ---
[facility] RN NOTE HD COMPETED, REMOVED 1.5 L OF FLUIDS , BP 125/78 , HL ON RT FA REMOVED, NO NO S\INFECTION NOTED ,NO BLEEDING ,NO REDNESS OR PAIN NOTED .DISCHARGE INSTRUCTION GIVEN , EXPLAINED HOW TO TAKE HOME MEDS AND POSSIBLE SIDE EFFECTS , ALSO INSTRUCTED TO FOLLOW UP WITH HD SCHEDULE AND BOMB SQUAD COMMANDER AND PRIMARY CARE DOCTOR , BEACONING SIGNED Addendum: 08/22/17 at 1753 by TANG MACKENZIE RN REFUSE COVERAGE WITH INSULIN AND DINNER, STATED I WILL GO HOME SOON , ALSO TELE REMOVED WILL AWAITING TOF FAMILY TO HUMAN RESOURCES SERVICES SPECIALIST PATIENT
--- NOTE | 2017-08-22 18:05 | NUR ---
[facility] CHENEY NOTE TAKEN TO KEKE IN W\C W ACCOMPANIED WITH AND NEIGHBOR JULIO CESAR WITH STABLE CONDITION WITH LOADING MACHINE ADJUSTER Addendum: 08/22/17 at 1841 by TANG MACKENZIE RN NO C\O PAIN OR DISCOMFORT , LT UPPER ARM AV SHUNT WITH DRY DRESSING INTACT , NO BLEEDING NOTED , PATIENT NO C\O DIZZINESS BP 125/78 AFTER HD COMPLETED
== END 2017-08-22 18:09 | disposition short-term general hospital (02) | DRG 280 ==
LOC: ER 18:48 → ICU 20:55 → TELE-TD 08-21 14:33 → TELE1 08-22 17:26
PROVIDERS: ADMIT Family Medicine; ATTEND Family Medicine
PROC: 5A1D70Z Performance of Urinary Filtration, Intermittent, Less than 6 Hours Per Day (ICD-10-PCS; principal; 2017-08-22)
DX: I21.3 ST elevation (STEMI) myocardial infarction of unspecified site (principal); I50.43 Acute on chronic combined systolic (congestive) and diastolic (congestive) heart failure; J90 Pleural effusion, not elsewhere classified; I13.2 Hypertensive heart and chronic kidney disease with heart failure and with stage 5 chronic kidney disease, or end stage renal disease; E11.22 Type 2 diabetes mellitus with diabetic chronic kidney disease; E11.319 Type 2 diabetes mellitus with unspecified diabetic retinopathy without macular edema; I27.20 Pulmonary hypertension, unspecified; E83.9 Disorder of mineral metabolism, unspecified; N18.6 End stage renal disease; M86.9 Osteomyelitis, unspecified; J94.8 Other specified pleural conditions; F03.90 Unspecified dementia, unspecified severity, without behavioral disturbance, psychotic disturbance, mood disturbance, and anxiety; E11.40 Type 2 diabetes mellitus with diabetic neuropathy, unspecified; I48.91 Unspecified atrial fibrillation; E87.5 Hyperkalemia; D63.8 Anemia in other chronic diseases classified elsewhere; E11.69 Type 2 diabetes mellitus with other specified complication; E78.5 Hyperlipidemia, unspecified; F32.9 Major depressive disorder, single episode, unspecified; F41.0 Panic disorder [episodic paroxysmal anxiety]; I25.110 Atherosclerotic heart disease of native coronary artery with unstable angina pectoris; I25.2 Old myocardial infarction; I35.0 Nonrheumatic aortic (valve) stenosis; I70.0 Atherosclerosis of aorta; K21.9 Gastro-esophageal reflux disease without esophagitis; M81.0 Age-related osteoporosis without current pathological fracture; M10.9 Gout, unspecified; N40.0 Benign prostatic hyperplasia without lower urinary tract symptoms; Z95.1 Presence of aortocoronary bypass graft; Z99.2 Dependence on renal dialysis; Z87.891 Personal history of nicotine dependence; Z89.429 Acquired absence of other toe(s), unspecified side; Z86.73 Personal history of transient ischemic attack (TIA), and cerebral infarction without residual deficits; Z82.49 Family history of ischemic heart disease and other diseases of the circulatory system; Z79.82 Long term (current) use of aspirin; Z79.4 Long term (current) use of insulin; Z79.899 Other long term (current) drug therapy; H26.9 Unspecified cataract; R42 Dizziness and giddiness
CPT/HCPCS: 36415; 71010-TC; 80048-TC; 80053-TC; 82962-TC; 83735-TC; 84100-TC; 84484-TC; 85025-TC; 85730-TC; 87081-TC; 93307-TC; A4606; A6403; J1644; J1650; J1815; J2270; J3490; J7030; Z7610